=== PATIENT | female | born 1945 | race Caucasian/White ===

== ENCOUNTER 2021-07-21 18:12 | Inpatient (IN) | payer OTHER ==
--- OUTSIDE RECORDS SUMMARY | 2021-07-21 18:15 | XMS REPORT | Continuity of Care Document ---
:1945 Author Organization [facility] t Address [address] [place] [address] [address] [place] [address] Care Team Providers Name Role Phone Unavailable Unavailable Unavailable Problems This patient has no known problems. Allergies, Adverse Reactions, Alerts Allergy Allergy Status Severity Reaction(s) Onset Inactive Treating Comm ents Source Name Type Date Date Clinician NO KNOWN Drug Active [facility] y [facility] Medications This patient has no known medications. Procedures This patient has no known procedures. Encounters Start End Encounter Admission Attending Care Care Encounter Source Date/Time Date/Time Type Type Clinicians Facility Department ID 2020-11-03 2020-11-03 Outpatient R [facility] [id number] -20 [facility] 11:40:00 11:40:00 [id number] [facility] Results This patient has no known results.
[2021-07-21] MEDS ORDERED: ACETAMINOPHEN 325 MG TABLET ONE (20:12)
[2021-07-21] MEDS ORDERED: CEFTRIAXONE 1000 MG/VIAL ONE (20:12)
[2021-07-21] MEDS ORDERED: NA CHLORIDE 0.9% 1,000 ML ONE (20:13)
[2021-07-21] MEDS ORDERED: NA CHLORIDE 0.9% 0 ML ONE (20:13)
[2021-07-21 20:43] LABS: Urine Blood Negative (Negative); Urine Glucose Negative (Negative); Urine Protein 1+ (Negative); Urine Specific Gravity 1.025 (1.005-1.030)
[2021-07-21 20:47] LABS: Absolute Lymphocytes (CBC) 1.3 K/uL (0.7-4.9); Hematocrit 37.7 % (36.0-45.0); Lymphocytes % 10.6 % (15.3-44.8); MPV 9.9 fL (7.6-11.3)
[2021-07-21 21:03] LABS: Protime INR 1.03
--- NOTE | 2021-07-21 21:03 | ER ---
Nurse's Notes [facility] Name: Cathleen Coffey Age: 76 yrs Sex: Female : 1945 Arrival Date: 07/21/2021 Time: 18:14 Bed 19 Private MD: Diagnosis: Altered mental status, unspecified;Weakness;Fever, unspecified;Dementia in other diseases classified elsewhere without behavioral disturbance Presentation: 07/21 18:52 Chief complaint: Patient states: AMS, urinating on herself, not wanting to eat or jh5 drink, and complaining of back pain. Coronavirus screen: Vaccine status: Patient reports receiving the 2nd dose of the covid vaccine. Client denies travel out of the [place] in the last 14 days. Ebola Screen: Patient negative for fever greater than or equal to 101.5 degrees Fahrenheit, and additional compatible Ebola Virus Disease symptoms Patient denies exposure to infectious person. Patient denies travel to an Ebola-affected area in the 21 days before illness onset. Initial Sepsis Screen: Does the patient meet any 2 criteria? No. Patient's initial sepsis screen is negative. Does the patient have a suspected source of infection? Yes: Dysuria/Frequency/Urgency/UTI. Risk Assessment: Do you want to hurt yourself or someone else? Patient reports no desire to harm self or others. 18:52 Method Of Arrival: Ambulatory [facility] 18:52 Acuity: MAINE 2 [facility] Triage Assessment: 18:55 General: Appears in no apparent distress. slender, well groomed, well developed, well jh5 nourished, Behavior is calm, cooperative, appropriate for age. Pain: Complains of pain in back. Neuro: Level of Consciousness is awake, alert, obeys commands, confused, Oriented to person, place. Historical: - PMHx: 18:55 Alzheimer's disease; [facility] - Immunization history:: Adult Immunizations up to date. - Social history:: Smoking status: Patient denies any tobacco usage or history of. Screenin:51 Abuse screen: Denies threats or abuse. Denies injuries from another. Nutritional dora screening: No deficits noted. Tuberculosis screening: No symptoms or risk factors identified. Fall Risk Fall in past 12 months (25 points). IV access (20 points). Assessment: 19:10 General: Appears in no apparent distress. comfortable, Behavior is calm, cooperative. dora Pain: Complains of pain in "all over" per the daughter's report, she c/o pain to shoulders and legs. Neuro: Oriented to person, place. Cardiovascular: No deficits noted. Respiratory: No deficits noted. GI: No deficits noted. : Reports incontinence, "pull up" in place. EENT: No deficits noted. Derm: excoriation under left breast with Desitin on it. Musculoskeletal: Pt is a total assist from the wheelchair to the bed, so total assist. Vital Signs: 18:52 BP 159 / 60; Pulse 79; Resp 18; Temp 98.7; Pulse Ox 99% ; Weight 65.77 kg; Height 5 ft. 5 8 in. (172.72 cm); 19:51 BP 142 / 62; Pulse 72; Resp 18; Temp 100.1; Pulse Ox 99% on R/A; Pain 6/10; dora 21:00 BP 140 / 92; Pulse 60; Resp 18; Pulse Ox 99% on R/A; dora 23:40 BP 123 / 66; Pulse 59; Resp 16; Pulse Ox 97% on R/A; dora 18:52 Body Mass Index 22.05 (65.77 kg, 172.72 cm) [facility] ED Course: 18:14 Patient arrived in ED. am2 18:54 Triage completed. [facility] 18:55 Arm band placed on right wrist. [facility] 19:10 Marizol Gandhi, RN is Primary Nurse. dora 19:51 Patient has correct armband on for positive identification. Bed in low position. Side dora rails up X2. Adult w/ patient. quality assurance monitor final on. Pulse ox on. NIBP on. Warm blanket given. 19:51 No provider procedures requiring assistance completed. Inserted saline lock: 20 gauge dora in right antecubital area, using aseptic technique. 19:59 Jem Young MD is Attending Physician. solange 20:28 Basic Metabolic Panel Sent. dora 20:28 CBC with Automated Diff Sent. dora 20:28 Liver (Hepatic) Function Sent. dora 20:28 Procalcitonin Sent. dora 20:28 Lactate Sent. dora 20:28 Blood Culture Adult (2) Sent. dora 20:28 COVID-19/FLU A+B/RSV (Document "Date of Onset" if Symptomatic) Sent. dora 20:29 Urine Culture Sent. dora 20:29 Basic Metabolic Panel Sent. dora 20:29 CBC with Diff Sent. dora 20:29 Magnesium Sent. dora 20:29 NT PRO-BNP Sent. dora 20:29 PT-INR Sent. dora 20:30 Troponin HS Sent. dora 20:30 LFT's Sent. dora 20:49 XRAY Chest (1 view) In Process Unspecified. EDMS 21:01 Steve Medel MD is Hospitalizing Provider. [facility] 21:05 EKG done, by ED staff, reviewed by Jem Young MD. tw5 21:42 CT Head Brain wo Cont In Process Unspecified. EDMS 23:48 I tried to call registration, as the pt is to go to Room 206. After I call report, I dora will again, try. 23:50 Flushed right antecubital Patient transferred, IV remains in place. dora 23:53 Report called and registration called. Registration is "working on it". dora Administered Medications: 20:28 Drug: Rocephin (cefTRIAXone) 1 grams Route: IV; Rate: per protocol; Site: right dora antecubital; 20:28 Drug: NS 0.9% 1000 ml Route: IV; Rate: 1 bolus; Site: right antecubital; dora 20:28 Drug: Tylenol 650 mg Route: PO; dora Outcome: 21:03 Decision to Hospitalize by Provider. solange 23:49 Admitted to Med/surg Report called to Nurse for 206 dora 23:49 Condition: stable /14 00:11 Patient left the ED. tw5 Signatures: Dispatcher [employer] Jem Coates MD MD cha Moreno, Amanda am2 Wood, Tiffany tw5 Barbara Loredo, RN RN 5 Marizol Gandhi RN RN dora
--- NOTE | 2021-07-21 21:03 | EDPHYS ---
Physician Documentation [facility] Name: Cathleen Coffey Age: 76 yrs Sex: Female : 1945 Arrival Date: 07/21/2021 Time: 18:14 Bed 19 Private MD: ED Physician Jem Young HPI: 07/21 20:44 This 76 yrs old Female presents to ER via Ambulatory with complaints of solange Altered Mental Status, Decreased Appetite. 20:44 The patient presents with confusion, decreased mental status. Onset: The solange symptoms/episode began/occurred today. Possible causes: CVA or TIA, low blood sugar, sepsis. Associated signs and symptoms: Pertinent positives: confusion. Current symptoms: In the emergency department the patient's symptoms have improved, mildly. Patient's baseline: Neuro: alert and fully oriented. The patient has experienced similar episodes in the past, a few times. Historical: - PMHx: 18:55 Alzheimer's disease; jh5 - Immunization history:: Adult Immunizations up to date. - Social history:: Smoking status: Patient denies any tobacco usage or history of. ROS: 20:49 Constitutional: Negative for fever, chills, and weight loss, Eyes: Negative for injury, solange pain, redness, and discharge, ENT: Negative for injury, pain, and discharge, Neck: Negative for injury, pain, and swelling, Cardiovascular: Negative for chest pain, palpitations, and edema, Respiratory: Negative for shortness of breath, cough, wheezing, and pleuritic chest pain, Abdomen/GI: Negative for abdominal pain, nausea, vomiting, diarrhea, and constipation, Back: Negative for injury and pain, : Negative for injury, bleeding, discharge, and swelling, MS/Extremity: Negative for injury and deformity, Skin: Negative for injury, rash, and discoloration, Psych: Negative for depression, anxiety, suicide ideation, homicidal ideation, and hallucinations, Allergy/Immunology: Negative for hives, rash, and allergies, Endocrine: Negative for neck swelling, polydipsia, polyuria, polyphagia, and marked weight changes, Hematologic/Lymphatic: Negative for swollen nodes, abnormal bleeding, and unusual bruising. 20:49 Neuro: Positive for altered mental status, weakness. 20:49 Neuro: Positive for Exam: 20:49 Head/Face: Normocephalic, atraumatic. Eyes: Pupils equal round and reactive to light, solange extra-ocular motions intact. Lids and lashes normal. Conjunctiva and sclera are non-icteric and not injected. Cornea within normal limits. Periorbital areas with no swelling, redness, or edema. ENT: Nares patent. No nasal discharge, no septal abnormalities noted. Tympanic membranes are normal and external auditory canals are clear. Oropharynx with no redness, swelling, or masses, exudates, or evidence of obstruction, uvula midline. Mucous membranes moist. Neck: Trachea midline, no thyromegaly or masses palpated, and no cervical lymphadenopathy. Supple, full range of motion without nuchal rigidity, or vertebral point tenderness. No Meningismus. Chest/axilla: Normal chest wall appearance and motion. Nontender with no deformity. No lesions are appreciated. Cardiovascular: Regular rate and rhythm with a normal S1 and S2. No gallops, murmurs, or rubs. Normal PMI, no JVD. No pulse deficits. Respiratory: Lungs have equal breath sounds bilaterally, clear to auscultation and percussion. No rales, rhonchi or wheezes noted. No increased work of breathing, no retractions or nasal flaring. Abdomen/GI: Soft, non-tender, with normal bowel sounds. No distension or tympany. No guarding or rebound. No evidence of tenderness throughout. Back: No spinal tenderness. No costovertebral tenderness. Full range of motion. Female : Normal external genitalia. Skin: Warm, dry with normal turgor. Normal color with no rashes, no lesions, and no evidence of cellulitis. MS/ Extremity: Pulses equal, no cyanosis. Neurovascular intact. Full, normal range of motion. Neuro: Awake and alert, GCS 15, oriented to person, place, time, and situation. Cranial nerves II-XII grossly intact. Motor strength 5/5 in all extremities. Sensory grossly intact. Cerebellar exam normal. Normal gait. Psych: Awake, alert, with orientation to person, place and time. Behavior, mood, and affect are within normal limits. 20:49 Constitutional: The patient appears febrile. 20:49 Neck: ROM/movement: no acute changes, limited range of motion, is not appreciated, Meningeal signs: are not present, nuchal rigidity, is not appreciated. 21:14 ECG was reviewed by the Attending Physician. [facility] Vital Signs: 18:52 BP 159 / 60; Pulse 79; Resp 18; Temp 98.7; Pulse Ox 99% ; Weight 65.77 kg; Height 5 ft. jh5 8 in. (172.72 cm); 19:51 BP 142 / 62; Pulse 72; Resp 18; Temp 100.1; Pulse Ox 99% on R/A; Pain 6/10; dora 21:00 BP 140 / 92; Pulse 60; Resp 18; Pulse Ox 99% on R/A; dora 23:40 BP 123 / 66; Pulse 59; Resp 16; Pulse Ox 97% on R/A; dora 18:52 Body Mass Index 22.05 (65.77 kg, 172.72 cm) jh5 MDM: 19:59 Patient medically screened. [facility] 21:00 Differential diagnosis: viral Infection, bacterial infection, URI, bronchitis, solange pneumonia UTI. Differential Diagnosis: CVA, electrolyte abnormality, hypoglycemia, intracranial bleed, pneumonia, seizure, volume depletion. Data reviewed: vital signs, nurses notes, lab test result(s), EKG, radiologic studies, CT scan, plain films. Data interpreted: ekg monitor tech: rate is 72 beats/min, rhythm is regular, Pulse oximetry: on room air is 99 %. Test interpretation: by ED physician or midlevel provider: ECG, plain radiologic studies. Counseling: I had a detailed discussion with the patient and/or guardian regarding: the historical points, exam findings, and any diagnostic results supporting the discharge/admit diagnosis, lab results, radiology results, the need for further work-up and treatment in the hospital. 07/21 20:06 Order name: Basic Metabolic Panel [facility] 07/21 20:06 Order name: CBC with Diff [facility] 07/21 20:06 Order name: LFT's [facility] 07/21 20:06 Order name: Magnesium; Complete Time: 00:08 [facility] 07/21 20:06 Order name: NT PRO-BNP; Complete Time: 00:08 [facility] 07/21 20:06 Order name: PT-INR; Complete Time: 21:17 [facility] 07/21 20:06 Order name: Troponin HS; Complete Time: 00:08 [facility] 07/21 20:06 Order name: Urine Culture [facility] 07/21 20:06 Order name: COVID-19/FLU A+B/RSV (Document "Date of Onset" if Symptomatic); Complete [facility] Time: 00:08 07/21 20:06 Order name: Lactate [facility] 07/21 20:06 Order name: Blood Culture Adult (2) [facility] 07/21 20:06 Order name: Procalcitonin; Complete Time: 00:08 [facility] 07/21 20:07 Order name: Basic Metabolic Panel; Complete Time: 00:08 [facility] 07/21 20:07 Order name: CBC with Automated Diff; Complete Time: 21:17 [facility] 07/21 20:06 Order name: XRAY Chest (1 view); Complete Time: 00:08 [facility] 07/21 20:06 Order name: EKG; Complete Time: 20:08 [facility] 07/21 20:06 Order name: Cardiac monitoring; Complete Time: 20:29 [facility] 07/21 20:06 Order name: EKG - Nurse/Tech; Complete Time: 21:06 [facility] 07/21 20:06 Order name: IV Saline Lock; Complete Time: 20:29 [facility] 07/21 20:06 Order name: Labs collected and sent; Complete Time: 20: [facility] 07/21 20:06 Order name: O2 Per Protocol; Complete Time: 20:29 [facility] 07/21 20:06 Order name: O2 Sat Monitoring; Complete Time: 20:29 [facility] 07/21 20:06 Order name: Urine Dipstick-Ancillary (obtain specimen); Complete Time: 20:29 [facility] 07/21 20:07 Order name: Liver (Hepatic) Function; Complete Time: 00:08 [facility] 07/21 20:42 Order name: Urine Dipstick-Ancillary; Complete Time: 20:44 [facility] 07/21 21:17 Order name: CT Head Brain wo Cont; Complete Time: 00:08 [facility] 07/22 00:10 Order name: CT Stone Protocol [facility] EC:14 Rate is 64 beats/min. Rhythm is regular. QRS [place] is Normal. FL interval is normal. QRS solange interval is normal. QT interval is normal. No Q waves. T waves are Normal. No ST changes noted. Clinical impression: NSR w/ Non-specific ST/T Changes and No evidence of ischemia. Interpreted by me. Reviewed by me. Administered Medications: 20:28 Drug: Rocephin (cefTRIAXone) 1 grams Route: IV; Rate: per protocol; Site: right dora antecubital; 20:28 Drug: NS 0.9% 1000 ml Route: IV; Rate: 1 bolus; Site: right antecubital; dora 20:28 Drug: Tylenol 650 mg Route: PO; dora Disposition Summary: 07/21/21 21:03 Hospitalization Ordered Hospitalization Status: Observation solange Provider: Steve Medel cha Location: Telemetry/MedSurg (observation) solange Condition: Fair solange Problem: new solange Symptoms: have improved solange Bed/Room Type: Standard [facility] Room Assignment: 206(07/21/21 22:54) mw Diagnosis - Altered mental status, unspecified solange - Weakness solange - Fever, unspecified solange - Dementia in other diseases classified elsewhere without behavioral disturbance solange Forms: - Medication Reconciliation Form solange - SBAR form solange Signatures: Dispatcher [employer] EDShara Jimenez RN RN Jem Hsu MD MD cha Rees, Jessica, RN RN jh5 Marizol Gandhi RN RN bo Corrections: (The following items were deleted from the chart) 22:54 21:03 solange [place]
--- NOTE | 2021-07-21 21:18 | RAD REPORT ---
EXAM DESCRIPTION: RAD - Chest Single View - 07/21/2021 8:49 pm CLINICAL HISTORY: COUGH COMPARISON: No comparisons FINDINGS: Lines: None. Lungs: No evidence of edema or pneumonia. Pleural: No significant pleural effusions or pneumothorax. Cardiac: The heart size is within normal limits. Bones: No acute fractures. Left shoulder arthroplasty. Advanced right shoulder degenerative changes. Other: IMPRESSION: No acute cardiopulmonary disease.
[2021-07-21 21:34] LABS: SARS-COV-2 RT PCR NEGATIVE (NEGATIVE)
[2021-07-21 21:44] LABS: Albumin 3.7 g/dL (3.4-5.0); Bilirubin Direct 0.3 mg/dL (0-0.2); Magnesium 2.3 mg/dL (1.8-2.4); Potassium 3.3 mmol/L (3.5-5.1); Protein, Total 8.4 g/dL (6.4-8.2); Troponin High Sensitivity 6.5 pg/mL (<58.9)
--- NOTE | 2021-07-21 21:54 | RAD REPORT ---
EXAM DESCRIPTION: CT - Head Brain Wo Cont - 07/21/2021 9:43 pm CLINICAL HISTORY: Dizziness;Mental status change COMPARISON: Head Brain Wo Cont dated 03/04/2018 TECHNIQUE: All CT scans are performed using dose optimization technique as appropriate and may inclu de automated exposure control or mA/KV adjustment according to patient size. FINDINGS: No intracranial hemorrhage, hydrocephalus or extra-axial fluid collection.No areas of brai n edema or evidence of midline shift. Moderate chronic small vessel ischemic changes which has progre ssed significantly since 03/04/2018. Cerebral atrophy. The paranasal sinuses and mastoids are clear. The calvarium is intact. IMPRESSION: No acute intracranial abnormality.
[2021-07-22] MEDS ORDERED: ONDANSETRON 4 MG/2 ML VIAL IV PRN (00:35)
[2021-07-22] MEDS ORDERED: ACETAMINOPHEN 500 MG TAB PO PRN (00:35)
[2021-07-22] MEDS: NA CHLORIDE 0.9% 1,000 ML IV SCH ×3 (00:50→20:41)
--- NOTE | 2021-07-22 02:49 | P.HP ---
Certification for Inpatient Patient admitted to: Inpatient With expected LOS: <2 Midnights Patient will require the following post-hospital care: None Practitioner: I am a practitioner with admitting privileges, knowledge of patient current condition, hospital course, and medical plan of care. Services: Services provided to patient in accordance with Admission requirements found in Title 42 Section 412.3 of the Code of Federal Regulations Patient History Date of Service: 07/22/21 Primary Care Provider: Cody Reason for admission: weakness History of Present Illness: Ms. Coffey is a 76 yo F with Alzheimer's disease and HTN who presents with one day of increased weakness. At home, her son-in-law was unable to get her up or get her to respond to him. When the daughter arrived, she says Ms. Coffey was slouched down in her chair. She would not stand and said she could not walk. She had an episode of incontinence. Daughter reports she has also had low grade fever and poor appetite. WBC 12.6 K 3.3 GFR 75 Glu 132 Allergies No Known Allergies Allergy (Unverified 07/22/21 00:41) Home Medications: Donepezil HCl 10 mg PO BEDTIME 07/22/21 Iron 27 mg PO DAILY 07/22/21 Losartan Potassium 100 mg PO DAILY 07/22/21 Memantine HCl 10 mg PO BID 07/22/21 One A Day Womens 50+ 1 tab PO DAILY 07/22/21 Pantoprazole [Protonix Tab] 40 mg PO DAILY 07/22/21 Sertraline HCl 75 mg PO BEDTIME 07/22/21 - Past Medical/Surgical History Has patient received pneumonia vaccine in the past: Yes Diabetic: No -: Alzheimers -: HTN -: hip surgery -: bilateral knee surgery -: rotator cuff surgery -: hysterectomy -: appendectomy - Social History Smoking Status: Never smoker Alcohol use: No CD- Drugs: No Caffeine use: Yes Place of Residence: Home Review of Systems 10-point ROS is otherwise unremarkable General: Fever, Weakness, Malaise Eyes: Unremarkable ENT: Unremarkable Respiratory: Unremarkable Cardiovascular: Unremarkable Gastrointestinal: Unremarkable Genitourinary: Incontinence Musculoskeletal: Back Pain Integumentary: Rash Neurological: Weakness, Confusion, As per HPI Lymphatics: Unremarkable Physical Examination - Vital Signs Temperature: 96.5 F Blood Pressure: 133/64 Pulse: 57 Respirations: 18 Pulse Ox (%): 99 - Physical Exam General: Alert, In no apparent distress HEENT: Atraumatic, PERRLA, Mucous membr. moist/pink, EOMI, Sclerae nonicteric Neck: Supple, 2+ carotid pulse no bruit, No LAD, Without JVD or thyroid abnormality Respiratory: Clear to auscultation bilaterally, Normal air movement Cardiovascular: Regular rate/rhythm, Normal S1 S2 Gastrointestinal: Normal bowel sounds, No tenderness Musculoskeletal: No tenderness Integumentary: Rash(es) (dermatitis under breast) Neurological: Normal speech, Normal strength at 5/5 x4 extr, Normal tone, Dementia Lymphatics: No axilla or inguinal lymphadenopathy - Studies Laboratory Data (last 24 hrs) 07/21/21 20:15: PT 11.9, INR 1.03 07/21/21 20:15: WBC 12.60 H, Hgb 12.5, Hct 37.7, Plt Count 212 07/21/21 20:15: Sodium 138, Potassium 3.3 L, BUN 15, Creatinine 0.75, Glucose 132 H, Magnesium 2.3, Total Bilirubin 1.0, AST 18, ALT 19, Alkaline Phosphatase 109 Assessment and Plan - Problems (Diagnosis) (1) Weakness Current Visit: Yes Status: Acute (2) Anorexia Current Visit: Yes Status: Acute (3) AMS (altered mental status) Current Visit: Yes Status: Acute Qualifiers: Altered mental status type: unspecified Qualified Code(s): R41.82 - Altered mental status, unspecified (4) Alzheimer disease Current Visit: Yes Status: Chronic (5) HTN (hypertension) Current Visit: Yes Status: Chronic Qualifiers: Hypertension type: primary hypertension Qualified Code(s): I10 - Essential (primary) hypertension - Plan repeat urine microscopy continue IV fluids and IV ceftriaxone dietitian consulted PT consulted reconcile and continue home medications DVT ppx Discharge Plan: Home Plan to discharge in: 48 Hours - Advance Directives Does patient have a Living Will: No Does patient have a Durable POA for Healthcare: Yes - Code Status/Comfort Care Code Status Assessed: Yes (full code ) Critical Care: No Time Spent Managing Pts Care (In Minutes): 70
[2021-07-22 05:40] LABS: Absolute Lymphocytes (CBC) 2.9 K/uL (0.7-4.9); Hematocrit 32.4 % (36.0-45.0); Lymphocytes % 31.9 % (15.3-44.8); MPV 8.3 fL (7.6-11.3); RBC Red Blood Cell Count 3.59 M/uL (3.86-4.86)
[2021-07-22 07:12] LABS: ALT/SGPT 14 U/L (12-78); AST/SGOT 12 U/L (15-37); Albumin 2.8 g/dL (3.4-5.0); Alkaline Phosphatase 83 U/L (45-117); BUN Blood Urea Nitrogen 12 mg/dL (7-18); Bicarbonate 26 mmol/L (21-32); Bilirubin Total 0.9 mg/dL (0.2-1.0); Glucose Level 111 mg/dL (74-106); Magnesium 2.5 mg/dL (1.8-2.4); Phosphorus 2.7 mg/dL (2.5-4.9); Potassium 3.2 mmol/L (3.5-5.1); Protein, Total 6.7 g/dL (6.4-8.2); Sodium Level 142 mmol/L (136-145)
[2021-07-22 07:23] LABS: Urine Appearance CLEAR (Clear); Urine Bilirubin NEGATIVE (Negative); Urine Blood TRACE (Negative); Urine Color YELLOW (Yellow); Urine Glucose NEGATIVE (Negative); Urine Protein NEGATIVE (Negative); Urine pH 6.5 (5.0-7.0)
[2021-07-22] MEDS: INSULIN -REGULAR HUMAN 50 UNIT/0.5 ML ML SQ SCH ×4 (07:30→21:00)
[2021-07-22 07:57] LABS: Urine Microscopic Reflex ORDER UMIC
[2021-07-22] MEDS ORDERED: INFLUENZA VACCINE (for 6+ mo) 0.5 ML DOSE IMVAC ONE (08:00)
[2021-07-22 08:02] LABS: Urine Bacteria <20 /HPF (<20); Urine RBC <5 /HPF (NONE SEEN)
[2021-07-22] MEDS: ENOXAPARIN 40 MG/0.4 ML SQ SCH ×2 (08:35→08:37)
[2021-07-22] MEDS ORDERED: POTASSIUM CL SA 10 MEQ TAB PO ONE (09:00)
--- NOTE | 2021-07-22 13:33 | RAD REPORT ---
EXAM DESCRIPTION: CT - Stone Protocol - 07/22/2021 12:53 am CLINICAL HISTORY: ABD PAIN. COMPARISON: None. TECHNIQUE: Serial axial CT images were obtained from above the diaphragm through the pubic symphysis without administration of intravenous or oral contrast. All CT scans are performed using dose optimization techniques as appropriate, including automated exp osure control and/or standardized protocols, where dose is adjusted for indication for exam and body habitus. FINDINGS: Thoracic: No significant abnormality. Hepatobiliary: Multiple tiny calcified granulomata in the liver. No obvious concerning hepatic lesion identified in the absence of intravenous contrast. The gallbladder is unremarkable. No biliary ducta l dilatation. Pancreas: Unremarkable. Spleen: Multiple tiny calcified granulomata in the spleen. Gastrointestinal: Moderate amount of fecal material in the distal sigmoid colon and the rectum. Moder ate left colonic diverticulosis. No evidence of bowel obstruction or perienteric inflammation. The ap pendix is not definitely visualized, but there are no pericecal inflammatory changes. Adrenals: No abnormality identified in either adrenal gland. Renal: Tiny hyperdense cyst in the superior left kidney. No obvious parenchymal abnormality in either kidney in the absence of intravenous contrast. No hydronephrosis or urolithiasis. Bladder/Reproductive: Unremarkable appearance of the urinary bladder by CT technique. Vascular/Lymphatics: No lymphadenopathy identified by CT size criteria. Trace calcific atherosclerosi s. Abdominal aorta is normal in caliber. Musculoskeletal: No concerning osseous lesion identified. Osteopenia. Left hip arthroplasty. Moderate to severe right hip osteoarthrosis. Fluid / peritoneum: No significant free fluid. No free intraperitoneal air identified. IMPRESSION: 1. No acute abnormality identified in the abdomen or pelvis by CT. 2. Moderate amount of fecal material in the distal sigmoid colon and the rectum. Moderate left colo terri diverticulosis without evidence of acute diverticulitis. Electronically signed by: Jennifer Ruff MD 07/22/2021 12:46 AM PRECISION OPTICS TECHNICIAN Due to temporary technical issues with the PACS/Fluency reporting system, reports are being signed by the in house radiologists without review as a courtesy to insure prompt reporting. The interpreting radiologist is fully responsible for the content of the report.
--- NOTE | 2021-07-22 14:22 | P.PN ---
Date of Service: 07/22/21 Patient seen and examined. Daughter reports patient has been having syncopal episodes especially during bowel movement. She also reported patient has been complaining of pain in the lower back and hip area which is affecting her ability to transfer or walk. CT abdomen pelvis reviewed. Moderate to severe right hip osteoarthrosis which may be causing her hip pain. UA with mild evidence of UTI. Plan: Continue antibiotics. Follow urine culture Pain management Seen by PT and skilled rehab recommended. Orthostatic vitals negative today.
[2021-07-22] MEDS: HYDROCODONE/APAP 5/325 MG TAB PO PRN (15:29)
[2021-07-22 15:34] LABS: Potassium 3.2 mmol/L (3.5-5.1)
[2021-07-22] MEDS ORDERED: CEFTRIAXONE 1000 MG/VIAL ONE (20:02)
[2021-07-22] MEDS: CEFTRIAXONE 1,000 MG in NA CHLORIDE 0.9% 50 ML IVPB SCH (20:40)
[2021-07-22] MEDS: ENSURE ENLIVE 237 ML CAN PO SCH (20:41)
[2021-07-22] MEDS: SERTRALINE HCL 50 MG TAB PO SCH (21:43)
[2021-07-22] MEDS: MEMANTINE HCL 10 MG TABLET PO SCH (21:43)
[2021-07-22] MEDS: DONEPEZIL HCL 5 MG TAB PO SCH (21:44)
[2021-07-23 00:10] VITALS: BMI 22.6
[2021-07-23] MEDS: HYDROCODONE/APAP 5/325 MG TAB PO PRN ×4 (00:18→18:32)
[2021-07-23 05:50] LABS: Hematocrit 30.7 % (36.0-45.0); Lymphocytes % 42.9 % (15.3-44.8); MPV 8.9 fL (7.6-11.3); RBC Red Blood Cell Count 3.36 M/uL (3.86-4.86)
[2021-07-23] MEDS: NA CHLORIDE 0.9% 1,000 ML IV SCH ×2 (06:37→15:50)
[2021-07-23] MEDS: INSULIN -REGULAR HUMAN 50 UNIT/0.5 ML ML SQ SCH ×2 (07:30→11:30)
[2021-07-23] MEDS ORDERED: POTASSIUM 25 MEQ EFFERV TAB PO ONE (09:00)
[2021-07-23] MEDS: ENSURE ENLIVE 237 ML CAN PO SCH ×2 (09:00→22:42)
[2021-07-23] MEDS: CEFTRIAXONE 1,000 MG in NA CHLORIDE 0.9% 50 ML IVPB SCH (09:10)
[2021-07-23] MEDS: FERROUS SULFATE 325 MG TAB PO SCH (09:11)
[2021-07-23] MEDS: LOSARTAN POTASSIUM 50 MG TABLET PO SCH (09:11)
[2021-07-23] MEDS: MEMANTINE HCL 10 MG TABLET PO SCH ×2 (09:11→21:42)
[2021-07-23] MEDS: PANTOPRAZOLE 40MG TABLET PO SCH (09:11)
[2021-07-23] MEDS: MULTIVIT W/ MINERAL TAB PO SCH (09:11)
--- NOTE | 2021-07-23 13:21 | P.PN ---
Subjective Date of Service: 07/23/21 Primary Care Provider: Cody Chief Complaint: weakness Patient reports pain in the right hip. She is awake and interactive. No fever. She is tolerating diet. Physical Examination - Vital Signs Temperature: 97.8 F Blood Pressure: 149/79 Pulse: 59 Respirations: 16 Pulse Ox (%): 95 - Physical Exam General: In no apparent distress, Other (Awake) HEENT: PERRLA, Mucous membr. moist/pink, EOMI Neck: Supple, JVD not distended Respiratory: Clear to auscultation bilaterally, Normal air movement Cardiovascular: No edema, Regular rate/rhythm, Normal S1 S2 Gastrointestinal: Normal bowel sounds, Soft and benign, Non-distended, No tenderness Musculoskeletal: No swelling, Tenderness (Right lateral hip) Integumentary: No rashes, No erythema, No cyanosis Neurological: Normal strength at 5/5 x4 extr, Other (Moves all extremities.) Assessment And Plan - Current Problems (Diagnosis) (1) Osteoarthrosis, hip Current Visit: Yes Status: Acute (2) AMS (altered mental status) Current Visit: Yes Status: Acute Qualifiers: Altered mental status type: unspecified Qualified Code(s): R41.82 - Altered mental status, unspecified (3) Alzheimer disease Current Visit: Yes Status: Chronic (4) HTN (hypertension) Current Visit: Yes Status: Chronic Qualifiers: Hypertension type: primary hypertension Qualified Code(s): I10 - Essential (primary) hypertension (5) Impaired mobility Current Visit: Yes Status: Acute (6) UTI (urinary tract infection) Current Visit: Yes Status: Acute - Plan Daughter describes what appears to be intermittent vasovagal syncope which WITH voiding or BMs or prolonged standing. Also has AMS secondary to UTI. Both blood culture and urine culture growing known beta-hemolytic strep. Continue IV Rocephin. Repeat blood culture. Orthopedic consult for right hip osteoarthrosis. Status post left hip replacement for osteoarthrosis several years ago. Continue PT. Disposition to skilled rehab.
[2021-07-23] MEDS ORDERED: INFLUENZA VACCINE (for 6+ mo) 0.5 ML DOSE IMVAC ONE (15:00)
[2021-07-23] MEDS ORDERED: HALOPERIDOL LACT 5 MG/ML INJ IV ONE (15:02)
[2021-07-23] MEDS: DONEPEZIL HCL 5 MG TAB PO SCH (21:41)
[2021-07-23] MEDS: SERTRALINE HCL 50 MG TAB PO SCH (21:41)
[2021-07-24] MEDS: NA CHLORIDE 0.9% 1,000 ML IV SCH ×4 (03:07→22:35)
[2021-07-24 06:25] LABS: Absolute Lymphocytes (CBC) 2.7 K/uL (0.7-4.9); Hematocrit 31.4 % (36.0-45.0); Lymphocytes % 45.2 % (15.3-44.8); MPV 8.1 fL (7.6-11.3)
[2021-07-24 06:46] LABS: BUN Blood Urea Nitrogen 5 mg/dL (7-18); Bicarbonate 30 mmol/L (21-32); Glucose Level 91 mg/dL (74-106); Potassium 3.9 mmol/L (3.5-5.1); Sodium Level 142 mmol/L (136-145)
[2021-07-24] MEDS ORDERED: POTASSIUM CL SA 10 MEQ TAB PO ONE (09:00)
[2021-07-24] MEDS: CEFTRIAXONE 1,000 MG in NA CHLORIDE 0.9% 50 ML IVPB SCH (10:40)
[2021-07-24] MEDS: ENOXAPARIN 40 MG/0.4 ML SQ SCH (10:40)
[2021-07-24] MEDS: MEMANTINE HCL 10 MG TABLET PO SCH ×2 (10:41→21:00)
[2021-07-24] MEDS: PANTOPRAZOLE 40MG TABLET PO SCH (10:41)
[2021-07-24] MEDS: MULTIVIT W/ MINERAL TAB PO SCH (10:41)
[2021-07-24] MEDS: FERROUS SULFATE 325 MG TAB PO SCH (10:41)
[2021-07-24] MEDS: LOSARTAN POTASSIUM 50 MG TABLET PO SCH (10:41)
[2021-07-24] MEDS: ENSURE ENLIVE 237 ML CAN PO SCH ×2 (10:42→21:00)
[2021-07-24] MEDS: HYDROCODONE/APAP 5/325 MG TAB PO PRN ×2 (10:57→16:48)
--- NOTE | 2021-07-24 11:29 | P.PN ---
Subjective Date of Service: 07/24/21 Primary Care Provider: Cody Chief Complaint: weakness Patient has no complains today She is awake and interactive. She is tolerating diet. Physical Examination - Vital Signs Temperature: 99.0 F Blood Pressure: 152/77 Pulse: 66 Respirations: 16 Pulse Ox (%): 95 - Physical Exam General: Alert, In no apparent distress, Oriented x3 HEENT: Mucous membr. moist/pink Neck: JVD not distended Respiratory: Clear to auscultation bilaterally, Normal air movement Cardiovascular: No edema, Regular rate/rhythm, Normal S1 S2 Gastrointestinal: Soft and benign, Non-distended, No tenderness Musculoskeletal: No swelling Integumentary: No rashes, No erythema, No cyanosis Neurological: Normal strength at 5/5 x4 extr - Studies Microbiology Data (last 24 hrs): 07/21/21 20:15 Clean Catch Urine [place] Count - Final >100,000 CFU/ML. 07/21/21 20:15 Clean Catch Urine - Final Enterococcus Faecalis 07/21/21 20:15 Blood - Blood Gram Stain - Final Assessment And Plan - Current Problems (Diagnosis) (1) Osteoarthrosis, hip Current Visit: Yes Status: Acute (2) AMS (altered mental status) Current Visit: Yes Status: Acute Qualifiers: Altered mental status type: unspecified Qualified Code(s): R41.82 - Altered mental status, unspecified (3) Alzheimer disease Current Visit: Yes Status: Chronic (4) HTN (hypertension) Current Visit: Yes Status: Chronic Qualifiers: Hypertension type: primary hypertension Qualified Code(s): I10 - Essential (primary) hypertension (5) Impaired mobility Current Visit: Yes Status: Acute (6) UTI (urinary tract infection) Current Visit: Yes Status: Acute - Plan AMS resolved Urine culture: Enterococcus sensitive to penicillin. Continue IV Rocephin. Repeat blood culture is pending. Discussed her right hip osteoarthrosis with orthopedic surgeon Dr. Frye. Dr. Frye an elective procedure and further evaluation as an outpatient. Recommended pain management and rehab Status post left hip replacement for osteoarthrosis several years ago. Continue PT. Disposition to skilled rehab.
[2021-07-24] MEDS: DONEPEZIL HCL 5 MG TAB PO SCH (21:00)
[2021-07-24] MEDS: SERTRALINE HCL 50 MG TAB PO SCH (21:00)
[2021-07-25] MEDS: HYDROCODONE/APAP 5/325 MG TAB PO PRN ×2 (00:45→21:23)
[2021-07-25] MEDS: NA CHLORIDE 0.9% 1,000 ML IV SCH ×4 (05:17→18:11)
[2021-07-25 05:59] LABS: BUN Blood Urea Nitrogen 9 mg/dL (7-18); Bicarbonate 27 mmol/L (21-32); Glucose Level 89 mg/dL (74-106); Potassium 3.4 mmol/L (3.5-5.1); Sodium Level 141 mmol/L (136-145)
[2021-07-25] MEDS: ENSURE ENLIVE 237 ML CAN PO SCH ×2 (09:00→21:00)
[2021-07-25] MEDS ORDERED: POTASSIUM 25 MEQ EFFERV TAB PO ONE (09:00)
[2021-07-25 09:51] VITALS: O2SAT 98
[2021-07-25] MEDS: CEFTRIAXONE 1,000 MG in NA CHLORIDE 0.9% 50 ML IVPB SCH (09:58)
[2021-07-25] MEDS: ENOXAPARIN 40 MG/0.4 ML SQ SCH (09:58)
[2021-07-25] MEDS: MULTIVIT W/ MINERAL TAB PO SCH (09:59)
[2021-07-25] MEDS: MEMANTINE HCL 10 MG TABLET PO SCH ×2 (09:59→21:07)
[2021-07-25] MEDS: FERROUS SULFATE 325 MG TAB PO SCH (09:59)
[2021-07-25] MEDS: PANTOPRAZOLE 40MG TABLET PO SCH (09:59)
[2021-07-25] MEDS: LOSARTAN POTASSIUM 50 MG TABLET PO SCH (09:59)
--- NOTE | 2021-07-25 14:12 | P.PN ---
Subjective Date of Service: 07/25/21 Primary Care Provider: Cody Chief Complaint: weakness Patient complains of pain with movement She is awake and interactive. She is tolerating diet. Physical Examination - Vital Signs Temperature: 99.6 F Blood Pressure: 156/70 Pulse: 67 Respirations: 18 Pulse Ox (%): 99 - Physical Exam General: Alert, In no apparent distress HEENT: Mucous membr. moist/pink Neck: JVD not distended Respiratory: Clear to auscultation bilaterally, Normal air movement Cardiovascular: No edema, Regular rate/rhythm, Normal S1 S2 Gastrointestinal: Soft and benign, Non-distended Musculoskeletal: No swelling Integumentary: No rashes Neurological: Normal strength at 5/5 x4 extr - Studies Microbiology Data (last 24 hrs): 07/21/21 20:15 Blood - Blood Gram Stain - Final 07/21/21 20:15 Clean Catch Urine [place] Count - Final >100,000 CFU/ML. 07/21/21 20:15 Clean Catch Urine - Final Enterococcus Faecalis Assessment And Plan - Current Problems (Diagnosis) (1) Osteoarthrosis, hip Current Visit: Yes Status: Acute (2) AMS (altered mental status) Current Visit: Yes Status: Acute Qualifiers: Altered mental status type: unspecified Qualified Code(s): R41.82 - Altered mental status, unspecified (3) Alzheimer disease Current Visit: Yes Status: Chronic (4) HTN (hypertension) Current Visit: Yes Status: Chronic Qualifiers: Hypertension type: primary hypertension Qualified Code(s): I10 - Essential (primary) hypertension (5) Impaired mobility Current Visit: Yes Status: Acute (6) UTI (urinary tract infection) Current Visit: Yes Status: Acute - Plan AMS resolved Urine culture: Enterococcus sensitive to penicillin. Continue IV Rocephin. Patient to complete 5 days of treatment for UTI. Blood culture also grew Enterococcus. ID consult to assist with duration of antibiotics. Repeat blood culture shows no growth. Discussed her right hip osteoarthrosis with orthopedic surgeon Dr. Frye. Dr. Frye an elective procedure and further evaluation as an outpatient. He recommended pain management and rehab at this time. Status post left hip replacement for osteoarthrosis several years ago. Continue PT. Disposition to skilled rehab.
--- NOTE | 2021-07-25 14:30 | CON ---
Reason For Consultation: Right hip pain. History Of Present Illness: Ms. Coffey is a 76-year-old female with history of Alzheimer's and hyper tension, who was admitted to the hospital for weakness and UTI. While in the hospital, she reported some right hip pain. She reports history of left total hip arthroplasty. She reports pain in the ri ght hip over the anterolateral and posterior aspect of the right hip. She reports the pain worsens w ith prolonged ambulation. Review of Systems: As above, otherwise negative. Past Medical History: Includes Alzheimer's, hypertension. Past Surgical History: Includes left hip replacement, knee surgery, rotator cuff surgery, hysterecto my, appendectomy. Social History: She denies tobacco or alcohol use. Lives at home. Medications: Donepezil, iron, losartan, memantine, Protonix, and Zoloft. Allergies: NO KNOWN DRUG ALLERGIES. Review of Systems: As above, otherwise negative. Physical Examination: General: No apparent distress. HEENT: Normocephalic, atraumatic. Neck: Supple. Cardiovascular: Brisk cap refill to all digits. Chest: Nonlabored breathing. Abdomen: Nondistended. Psychiatric: Responds to exam of the right lower extremity. Extremities: No significant pain with hip flexion nor hip internal and external rotation. Some post erior hip pain with straight leg raise. No tenderness over her knee. No swelling over the knee. Ne urovascularly intact distally. Bilateral upper extremities functional range of motion without pain. No gross deformities. No obvious dislocations. Left lower extremity functional range of motion. N o pain. No gross deformities. No obvious dislocations. Imaging: CT scan of the pelvis demonstrates no fracture of the right hip. There is some moderate os teoarthritis of the right hip. Assessment And Plan: Cathleen is a 76-year-old female with right hip pain and right hip osteoarthritis . Based on the patient's exam, the patient still has maintained some range of motion of her right hi p. She has no pain with range of motion of the hip. She does report some posterior hip pain, which may be some sciatica that can also be contributing to her hip pain. No surgical intervention is magen cated at this time. She may take NSAIDs as needed and mobilize as tolerated with the use of a walker . She has significant weakness. She may follow up in my clinic as needed. CV/MODL Voice ID: [id number] Report ID: [id number]
[2021-07-25] MEDS: SERTRALINE HCL 50 MG TAB PO SCH (21:06)
[2021-07-25] MEDS: DONEPEZIL HCL 5 MG TAB PO SCH (21:07)
[2021-07-26] MEDS: NA CHLORIDE 0.9% 1,000 ML IV SCH (03:28)
[2021-07-26 05:41] LABS: Absolute Lymphocytes (CBC) 3.2 K/uL (0.7-4.9); Hematocrit 31.7 % (36.0-45.0); Lymphocytes % 45.2 % (15.3-44.8); MPV 8.8 fL (7.6-11.3); RBC Red Blood Cell Count 3.51 M/uL (3.86-4.86)
[2021-07-26 06:09] LABS: Magnesium 2.5 mg/dL (1.8-2.4); Potassium 3.7 mmol/L (3.5-5.1)
[2021-07-26] MEDS: HYDROCODONE/APAP 5/325 MG TAB PO PRN ×2 (06:42→12:42)
[2021-07-26 07:06] LABS: Blood Morphology Comment NOT SEEN (NOT SEEN); White Blood Cell Scan OK (OK)
[2021-07-26 07:07] LABS: Platelet Estimate ADEQ
[2021-07-26] MEDS ORDERED: CEFTRIAXONE 1000 MG/VIAL ONE (07:48)
[2021-07-26] MEDS ORDERED: NA CHLORIDE 0.9% 50 ML ONE (08:00)
[2021-07-26] MEDS: CEFTRIAXONE 1,000 MG in NA CHLORIDE 0.9% 50 ML IVPB SCH (08:17)
[2021-07-26] MEDS: FERROUS SULFATE 325 MG TAB PO SCH (08:17)
[2021-07-26] MEDS: MULTIVIT W/ MINERAL TAB PO SCH (08:17)
[2021-07-26] MEDS: ENOXAPARIN 40 MG/0.4 ML SQ SCH (08:17)
[2021-07-26] MEDS: ENSURE ENLIVE 237 ML CAN PO SCH (08:18)
[2021-07-26] MEDS: LOSARTAN POTASSIUM 50 MG TABLET PO SCH (08:22)
[2021-07-26] MEDS: MEMANTINE HCL 10 MG TABLET PO SCH (08:22)
[2021-07-26] MEDS: PANTOPRAZOLE 40MG TABLET PO SCH (08:22)
[2021-07-26] MEDS ORDERED: AMPICILLIN/SULBACT 3 GM in NA CHLORIDE 0.9% 100 ML IVPB SCH (12:00)
--- NOTE | 2021-07-26 12:00 | P.CNS ---
Date of Consult: 07/26/21 Primary Care Provider: Cody Chief Complaint: weakness History of Present Illness: The patient is a 76-year-old female with past medical history of Alzheimer's, and hypertension who presented to the emergency department secondary to increased weakness and hypotension. Patient confused at bedside, unable to give history./All history obtained via chart review. Per chart review the patient was found at home by her son-in-law who is unable to get her up from her chair/did not respond to him. EMS was called, patient also had an episode of incontinence. Daughter reported low-grade fever and poor appetite. Blood cultures grew Enterococcus faecalis, urine culture also growing Enterococcus faecalis. Bacteremia due to UTI. Rocephin empirically started, Rocephin discontinued on 07/26 and Unasyn started as penicillins are optimal agent for this specific constantine teria. Patient currently denies nausea/vomiting/diarrhea/shortness of breath/chest pain. Chest x-ray negative for any acute findings, abdominal CT also negative for any acute findings. Allergies No Known Allergies Allergy (Unverified 07/22/21 00:41) Home Medications: Donepezil HCl 10 mg PO BEDTIME 07/22/21 Iron 27 mg PO DAILY 07/22/21 Losartan Potassium 100 mg PO DAILY 07/22/21 Memantine HCl 10 mg PO BID 07/22/21 One A Day Womens 50+ 1 tab PO DAILY 07/22/21 Pantoprazole [Protonix Tab] 40 mg PO DAILY 07/22/21 Sertraline HCl 75 mg PO BEDTIME 07/22/21 - Past Medical/Surgical History Diabetic: No -: Alzheimers -: HTN -: hip surgery -: bilateral knee surgery -: rotator cuff surgery -: hysterectomy -: appendectomy - Social History Alcohol use: No CD- Drugs: No Caffeine use: Yes Place of Residence: Home Review of Systems 10-point ROS is otherwise unremarkable Physical Examination Temp Pulse Resp BP Pulse Ox 97.6 F 64 17 160/77 H 97 07/26/21 08:00 07/26/21 08:00 07/26/21 08:00 07/26/21 08:00 07/26/21 08:00 General: Confused HEENT: Atraumatic, Normocephalic Neck: JVD not distended Respiratory: Clear to auscultation bilaterally, Normal air movement Cardiovascular: Regular rate/rhythm, Normal S1 S2 Gastrointestinal: Normal bowel sounds, Non-distended Integumentary: No rashes, No breakdown, No significant lesion Conclusions/Impression: Antibiotics Unasyn Start: 07/26 Rocephin Start: 07/22 Stop: 07/26 Assessment/plan Bacteremia secondary to urinary tract infections Blood and urine cultures obtained on 07/21 growing Enterococcus faecalis. Repeat blood cultures obtained on 07/23 showed no growth. Recommend treating for total antibiotic duration of 7 days. Dementia Hypertension -Medical management per primary team Plan of care discussed with Dr. Yanez Thank you for consultation
[2021-07-26 14:22] VITALS: BP 138/75; TEMP 98.1
--- NOTE | 2021-07-27 07:37 | EKG ---
Test Date: 2021-07-21 Test Time: 21:03:55 Basting Machine Operator: NELL MEASUREMENT RESULTS: Intervals: Rate: 64 CO: 140 QRSD: 88 QT: 434 QTc: 447 [place]: P: 28 CO: 140 QRS: 22 T: 52 INTERPRETIVE STATEMENTS: Normal sinus rhythm Nonspecific ST and T wave abnormality Abnormal ECG Compared to ECG 07/21/2021 21:02:37 No significant changes Electronically Signed On 07-27-21 07:27:43 TRAVEL WRITER by Gage Gordillo
== END 2021-07-26 15:36 | DRG 689 ==
LOC: ER 18:12 → ERHOLD 23:09 → 2ND 23:55
PROVIDERS: ADMIT Internal Medicine; ATTEND Internal Medicine
DX: N39.0 Urinary tract infection, site not specified (principal); G93.41 Metabolic encephalopathy; R78.81 Bacteremia; G30.9 Alzheimer's disease, unspecified; F02.80 Dementia in other diseases classified elsewhere, unspecified severity, without behavioral disturbance, psychotic disturbance, mood disturbance, and anxiety; I10 Essential (primary) hypertension; B95.2 Enterococcus as the cause of diseases classified elsewhere; M16.11 Unilateral primary osteoarthritis, right hip; Z74.09 Other reduced mobility; Z96.642 Presence of left artificial hip joint; Z23 Encounter for immunization; Z20.822 Contact with and (suspected) exposure to COVID-19
CPT/HCPCS: 0241U; 36415; 70450; 71045; 74176; 76377; 80048; 80053; 80076; 81003; 81015; 82947; 83605; 83735; 83880; 84100; 84132; 84145; 84439; 84443; 84484; 85025; 85610; 87040; 87077; 87086; 87088; 87186; 87205; 90471; 93005; 94760; 96374; 97112; 97116; 97161; 97530; 99285; J0295; J1650; J7030; Q2035; U0003

== ENCOUNTER 2021-10-01 12:27 | Emergency (ER) | payer OTHER ==
--- OUTSIDE RECORDS SUMMARY | 2021-10-01 12:37 | XMS REPORT | Continuity of Care Document ---
:1945 Author Organization [facility] t Address [address] [place] [address] Dr. Peña. [address] [place] [address] Care Team Providers Name Role Phone Cody Primary Care Physician Therapy, Covid Infusion Attending Clinician Unavailable Justin RIOS, A Attending Clinician Gracia ANDERSON Attending Clinician Unavailable Lorrie WRAY Attending Clinician Unavailable Only, Db Test Attending Clinician Unavailable Christopher RIOS Attending Clinician Payers Payer Name Policy Type Policy Number Effective Date Expiration Date S ource Problems Condition Condition Condition Status Onset Resolution Last Treating Co mments Source Name Details Category Date Date Treatment Clinician Date No known No known Disease Unive rs active active ity of problems problems [facility] Allergies, Adverse Reactions, Alerts Allergy Allergy Status Severity Reaction(s) Onset Inactive Treating Comm ents Source Name Type Date Date Clinician NO KNOWN Drug Active Univers ALLERGIE Class ity of [facility] Social History Social Habit Start Date Stop Date Quantity Comments Source Alcohol intake 2021-08-03 2021-08-03 Current [facility] 00:00:00 00:00:00 non-drinker of [facility] alcohol [place] (finding) Sex [birth year] Universit y of 00:00:00 00:00:00 [facility] Smoking Status Start Date Stop Date Source Never smoker [facility] Medications Ordered Filled Start Stop Current Ordering Indication Dosage Frequency Signature Comments Components Source Medication Medication Date Date Medication? Clinician (SIG) Name Name sotrovimab 2021- No [id number] 500mg 500 mg, IV Univers (XEVUDY) 1-29 01-29 Infusion, ity o f 500 mg in 16:30: 15:51 ONCE, [place] NaCl 0.9% 00 :00 Administer Medi kalyn (NS) 50 mL over 30 Branch MINI-BAG Minutes, On 08/06/21 at 1030, For [address] able 24 hours refrigerat ed or 6 hours at room temperatur e including transporta tion and infusion time.
GALANTAMINE Yes [id number] TAKE 1 Univers 8 mg tablet 6-24 TABLET BY ity of 00:00: MOUTH [place] 00 TWICE A Medical DAY Branch GALANTAMINE Yes [id number] TAKE 1 Univers 8 mg tablet 6-24 TABLET BY ity of 00:00: MOUTH [place] 00 TWICE A Medical DAY Branch GALANTAMINE Yes [id number] TAKE 1 Univers 8 mg tablet 6-24 TABLET BY ity of 00:00: MOUTH [place] 00 TWICE A Medical DAY Branch vitamin Yes 500ug Take 500 Unive rs B-12 (B-12 2-04 mcg by ity of DOTS) 500 15:04: mouth [place] mcg tablet 26 daily. Medical Branch B Complex Yes Take 1 Univer s Vitamins 2-04 TAB-CAP/M2 ity o f (B-50 15:04: by mouth [place] COMPLEX) 26 daily. [facility] multivit-mi Yes Take 1 Univ ers n/iron/foli 2-04 TAB-CAP/M2 it y of c/lutein 15:04: by mouth [place] (CENTRUM 26 daily. Medical SILVER Branch WOMEN ORAL) vitamin C Yes 1000mg Take 1,000 Univers with deon 2-04 mg by ity of hips 15:04: mouth [place] (VITAMIN C) 26 daily. Medica l 1,000 mg Branch tablet vitamin Yes 500ug Take 500 Unive rs B-12 (B-12 2-04 mcg by ity of DOTS) 500 15:04: mouth [place] mcg tablet 26 daily. Medical Branch B Complex Yes Take 1 Univer s Vitamins 2-04 TAB-CAP/M2 ity o f (B-50 15:04: by mouth [place] COMPLEX) 26 daily. Medical [facility] multivit-mi Yes Take 1 Univ ers n/iron/foli 2-04 TAB-CAP/M2 it y of c/lutein 15:04: by mouth [place] (CENTRUM 26 daily. [facility] SILVER [place] WOMEN ORAL) vitamin C Yes 1000mg Take 1,000 Univers with deon 2-04 mg by ity of hips 15:04: mouth [place] (VITAMIN C) 26 daily. Medica l 1,000 mg Branch tablet vitamin 2019- Yes 500ug Take 500 Unive rs B-12 (B-12 2-04 mcg by ity of DOTS) 500 15:04: mouth [place] mcg tablet 26 daily. Medical Branch B Complex 2018- Yes Take 1 Univer s Vitamins 2-04 TAB-CAP/M2 ity o f (B-50 15:04: by mouth [place] COMPLEX) 26 daily. Medical TbSR Branch multivit-mi Yes Take 1 Univ ers n/iron/foli 2-04 TAB-CAP/M2 it y of c/lutein 15:04: by mouth [place] (CENTRUM 26 daily. [facility] WOMEN ORAL) vitamin C Yes 1000mg Take 1,000 Univers with deon 2-04 mg by ity of hips 15:04: mouth [place] (VITAMIN C) 26 daily. Medica l 1,000 mg Branch tablet C,E,zinc,co Yes Take 1 Univ ers pper 2-04 TAB-CAP/M2 ity of 11/[id number]/ 15:04: [place] l[place] 25 daily. Medical ([facility] [place] ADULT 50 PLUS ORAL) C,E,zinc,co 2018- Yes Take 1 Univ ers pper 2-04 TAB-CAP/M2 ity of 11/[id number]/ 15:04: [place] 25 daily. Medical ([facility] ADULT 50 PLUS ORAL) C,E,zinc,co 2018- Yes Take 1 Univ ers pper 2-04 TAB-CAP/M2 ity of 11/cexpg9k/ 15:04: [place] 25 daily. Medical ([facility] ADULT 50 PLUS ORAL) traZODone 2017-07 Yes TAKE 1 Univer s 150 mg 2-13 TABLET BY ity of tablet 00:00: MOUTH [place] 00 EVERYDAY Medical AT BEDTIME Branch traZODone 2017-07 Yes TAKE 1 Univer s 150 mg 2-13 TABLET BY ity of tablet 00:00: MOUTH [place] 00 EVERYDAY Medical AT BEDTIME Branch traZODone 2017-07 Yes TAKE 1 Univer s 150 mg 2-13 TABLET BY ity of tablet 00:00: MOUTH [place] 00 EVERYDAY [facility] 2017-07 Yes 100mg Take 100 Univ ers 100 mg 1-26 mg by ity of tablet 00:00: mouth [place] 00 daily. Medical Branch losartan 2017-07 Yes 100mg Take 100 Univ ers 100 mg 1-26 mg by ity of tablet 00:00: mouth [place] 00 daily. Medical Branch losartan 2017-07 Yes 100mg Take 100 Univ ers 100 mg 1-26 mg by ity of tablet 00:00: mouth [place] 00 daily. [facility] Vital Signs Vital Name Observation Time Observation Value Comments Source Systolic blood 2021-08-06 16:46:00 147 mm[Hg] [facility] sity [facility] Diastolic blood 2021-08-06 16:46:00 79 mm[Hg] [facility] rate 2021-08-06 16:46:00 56 /min [facility] Body temperature 2021-08-06 16:46:00 36.78 [place] [facility] Respiratory rate 2021-08-06 16:46:00 15 /min [facility] Oxygen saturation in 2021-08-06 16:46:00 95 /min [facility] Arterial blood by [facility] Pulse oximetry [place] Body height 2021-08-06 15:05:00 170.2 cm [facility] Body weight 2021-08-06 15:05:00 67.132 kg [facility] BMI 2021-08-06 15:05:00 23.18 kg/m2 [facility] Body height 2021-08-03 22:27:00 170.2 cm [facility] Procedures This patient has no known procedures. Encounters Start End Encounter Admission Attending Care Care Encounter Source Date/Time Date/Time Type Type Clinicians Facility Department ID 2021-08-06 2021-08-06 Nurse Therapy, Adc Covid Infusion [facility] [id number] [facility] 09:00:00 10:00:00 Visit Ilir Anderson [id number] [id number] [id number] [facility] 053 Branch 2021-08-06 2021-08-06 Outpatient R [facility] [id number] Univers [facility]:00[facility]00 [facility]00[id number] 2021-08-06 Outpatient R JUSTIN [facility] [id number] Univers 09:00:00 [facility]00[facility] 2021-08-04 2021-08-04 Telephone Arlette Andrew [id number] Univers 00:00:00 00:00:00 [place] [id number] it y of [facility] [id number] Jono as [id number] [facility] 019 Branch 2021-08-03 2021-08-03 Urgent Only, Ang Db Test [facility] [id number] Univers 16:20:00 16:29:12 [facility] [id number] ity [facility] [id number] Jono as MIKAYLA?BLEA [phone] [place] [address] Branch MEDICAL OFFICE BUILDING Results This patient has no known results.
[2021-10-01] MEDS ORDERED: HYDROCODONE/APAP 10/325 TAB ONE (13:13)
[2021-10-01] MEDS ORDERED: IBUPROFEN 200 MG TAB PO ONE (13:13)
--- NOTE | 2021-10-01 14:20 | RAD REPORT ---
EXAM DESCRIPTION: RAD - Hip Left 2 View - 10/01/2021 1:50 pm CLINICAL HISTORY: PAIN COMPARISON: Hip Left 2 View dated 06/20/2019; Hip Left 2 View dated 11/22/2017 FINDINGS: No acute fracture. No malalignment. No significant focal degenerative changes. Intact left hip arthroplasty. IMPRESSION: No acute osseous abnormality involving the left hip.
--- NOTE | 2021-10-01 14:21 | RAD REPORT ---
EXAM DESCRIPTION: RAD - Pelvis - 10/01/2021 1:50 pm CLINICAL HISTORY: PAIN COMPARISON: Lumbar Spine 3 Views dated 10/01/2021; Hip Left 2 View dated 10/01/2021 FINDINGS: No acute fracture. No malalignment. Moderate to advanced degenerative changes are present at the right acetabulum. Left hip arthroplasty. The patient's left hip is rotated which obscures port ions of the left obturator ring. IMPRESSION: No acute osseous abnormality involving the pelvis.
--- NOTE | 2021-10-01 14:22 | RAD REPORT ---
EXAM DESCRIPTION: RAD - Lumbar Spine 3 Views - 10/01/2021 1:51 pm CLINICAL HISTORY: PAIN COMPARISON: LUMBAR SPINE 3 VIEWS dated 06/07/2015 FINDINGS: No acute fracture. 4 millimeters of retrolisthesis of L2 with respect to L3. Grade 1 anter olisthesis of L3 on L4. Disc height loss noted at multiple levels. Partially imaged scoliosis. Left h ip arthroplasty. IMPRESSION: No acute osseous abnormality involving the lumbar spine.
--- NOTE | 2021-10-01 14:44 | EDPHYS ---
Physician Documentation [facility] Name: Cathleen Coffey Age: 76 yrs Sex: Female : 1945 Arrival Date: 10/01/2021 Time: 12:29 Bed 25 Private MD: ED Physician Jem Young HPI: 10/01 14:30 This 76 yrs old Female presents to ER via Wheelchair with complaints of Fall solange Injury, Hip Pain. 14:30 Details of fall: The patient fell from an upright position, SLIDE OFF BED. Onset: The solange symptoms/episode began/occurred 1 day(s) ago. Associated injuries: The patient sustained injury to the head, contusion, hematoma, pain, swelling, tenderness. Severity of symptoms: At their worst the symptoms were mild. The patient has not experienced similar symptoms in the past, but family has similar symptoms. Historical: - Allergies: 12:42 No Known Allergies; ab2 - PMHx: 12:42 Alzheimer's disease; Hypertensive disorder; ab2 - Immunization history:: Adult Immunizations up to date. - Social history:: Smoking status: Patient denies any tobacco usage or history of. - Family history:: not pertinent. ROS: 14:30 Constitutional: Negative for fever, chills, and weight loss, Eyes: Negative for injury, solange pain, redness, and discharge, ENT: Negative for injury, pain, and discharge, Neck: Negative for injury, pain, and swelling, Cardiovascular: Negative for chest pain, palpitations, and edema, Respiratory: Negative for shortness of breath, cough, wheezing, and pleuritic chest pain, Abdomen/GI: Negative for abdominal pain, nausea, vomiting, diarrhea, and constipation, : Negative for injury, bleeding, discharge, and swelling, Skin: Negative for injury, rash, and discoloration, Neuro: Negative for headache, weakness, numbness, tingling, and seizure, Psych: Negative for depression, anxiety, suicide ideation, homicidal ideation, and hallucinations, Allergy/Immunology: Negative for hives, rash, and allergies, Endocrine: Negative for neck swelling, polydipsia, polyuria, polyphagia, and marked weight changes, Hematologic/Lymphatic: Negative for swollen nodes, abnormal bleeding, and unusual bruising. 14:30 Back: Positive for decreased range of motion, pain at rest, pain with movement, of the lumbar area. Exam: 14:30 Constitutional: This is a well developed, well nourished patient who is awake, alert, solange and in no acute distress. Head/Face: Normocephalic, atraumatic. Eyes: Pupils equal round and reactive to light, extra-ocular motions intact. Lids and lashes normal. Conjunctiva and sclera are non-icteric and not injected. Cornea within normal limits. Periorbital areas with no swelling, redness, or edema. ENT: Nares patent. No nasal discharge, no septal abnormalities noted. Tympanic membranes are normal and external auditory canals are clear. Oropharynx with no redness, swelling, or masses, exudates, or evidence of obstruction, uvula midline. Mucous membranes moist. Neck: Trachea midline, no thyromegaly or masses palpated, and no cervical lymphadenopathy. Supple, full range of motion without nuchal rigidity, or vertebral point tenderness. No Meningismus. Chest/axilla: Normal chest wall appearance and motion. Nontender with no deformity. No lesions are appreciated. Cardiovascular: Regular rate and rhythm with a normal S1 and S2. No gallops, murmurs, or rubs. Normal PMI, no JVD. No pulse deficits. Respiratory: Lungs have equal breath sounds bilaterally, clear to auscultation and percussion. No rales, rhonchi or wheezes noted. No increased work of breathing, no retractions or nasal flaring. Abdomen/GI: Soft, non-tender, with normal bowel sounds. No distension or tympany. No guarding or rebound. No evidence of tenderness throughout. Female : Normal external genitalia. Skin: Warm, dry with normal turgor. Normal color with no rashes, no lesions, and no evidence of cellulitis. Neuro: Awake and alert, GCS 15, oriented to person, place, time, and situation. Cranial nerves II-XII grossly intact. Motor strength 5/5 in all extremities. Sensory grossly intact. Cerebellar exam normal. Normal gait. Psych: Awake, alert, with orientation to person, place and time. Behavior, mood, and affect are within normal limits. 14:30 Back: pain, that is mild, ROM is painful, with all movement, normal spinal alignment noted, CVA tenderness, is absent, vertebral tenderness. Vital Signs: 12:40 BP 126 / 73; Pulse 73; Resp 17; Temp 98.3(TE); Pulse Ox 98% on R/A; Weight 62.14 kg; ab2 Height 5 ft. 7 in. (170.18 cm); Pain 10/10; 13:20 BP 131 / 60; Pulse 66; Resp 16; Pulse Ox 97% on R/A; ld1 14:25 BP 126 / 65; Pulse 67; Resp 16; Pulse Ox 98% on R/A; ld1 12:40 Body Mass Index 21.46 (62.14 kg, 170.18 cm) ab2 MDM: 12:46 Patient medically screened. solange 14:34 Differential diagnosis: fracture, multiple trauma, sprain, strain. Data reviewed: vital solange signs, nurses notes, radiologic studies, plain films. Data interpreted: athletic monitor: not applicable for this patient encounter. rate is 67 beats/min, rhythm is regular, Pulse oximetry: on room air is 67 %. Test interpretation: by ED physician or midlevel provider: plain radiologic studies. Counseling: I had a detailed discussion with the patient and/or guardian regarding: the historical points, exam findings, and any diagnostic results supporting the discharge/admit diagnosis, radiology results. 10/01 12:48 Order name: Pelvis XRAY; Complete Time: 14:29 solange 10/01 12:48 Order name: Hip Left 2 View XRAY; Complete Time: 14:29 solange 10/01 12:48 Order name: Lumbar Spine (3 Views) XRAY; Complete Time: 14:29 solange Administered Medications: 13:18 Drug: Motrin (ibuprofen) 600 mg Route: PO; ld1 14:52 Drug: [place] (HYDROcodone-acetaminophen) 10 mg-325 mg 1 tabs Route: PO; ld1 14:59 Follow up: Response: No adverse reaction ld1 Disposition Summary: 10/01/21 14:43 Discharge Ordered Location: Home solange Problem: new solange Symptoms: have improved solange Condition: Stable solange Diagnosis - Fall (on) (from) other stairs and steps solange - Low back pain solange - Pain in left hip solange Followup: solange - With: Private Physician - When: 2 - 3 days - Reason: Recheck today's complaints, Continuance of care, Re-evaluation by your physician Discharge Instructions: - Discharge Summary Sheet solange - Joint Pain solange - Arthritis solange - Acute Back Pain, Adult solange - Musculoskeletal Pain solange - Fall Prevention in the Home, Adult [facility] - Hip Pain [facility] - Fall Prevention in the Home, Adult, [id number]-px-Sntt [facility] Forms: - Medication Reconciliation Form [facility] - Thank You Letter [facility] - Antibiotic Education [facility] - Prescription Opioid Use [facility] Prescriptions: - Medrol (Dwaine) 4 mg Oral Tablets, Dose Pack - take 1 tablet by ORAL route as directed - follow package instructions; 1 solange packet; Refills: 0, Product Selection Permitted - Cyclobenzaprine 5 mg Oral Tablet - take 1 tablet by ORAL route 3 times per day As needed; 15 tablet; Refills: 0, [facility] Product Selection Permitted Signatures: Dispatcher [employer] EDJem Ford MD MD cha Dibbern, Lauren RN RN ld1 Husam Florentino Corrections: (The following items were deleted from the chart) 14:52 12:48 Urine Dipstick-Ancillary ordered. [facility] ld1
--- NOTE | 2021-10-01 14:44 | ER ---
Nurse's Notes [facility] Name: Cahtleen Coffey Age: 76 yrs Sex: Female : 1945 Arrival Date: 10/01/2021 Time: 12:29 Bed 25 Private MD: Diagnosis: Fall (on) (from) other stairs and steps;Low back pain;Pain in left hip Presentation: 10/01 12:40 Chief complaint: Patient's son or daughter states: "Last night about midnight she tried ab2 to get out of bed an slid and fell. She is c/o left hip pian and back pain. Her hip is very tender." Pt denies hitting head or LOC. Coronavirus screen: Vaccine status: Patient reports receiving the 2nd dose of the covid vaccine. Client denies travel out of the [place] in the last 14 days. At this time, the client does not indicate any symptoms associated with coronavirus-19. Ebola Screen: Patient negative for fever greater than or equal to 101.5 degrees Fahrenheit, and additional compatible Ebola Virus Disease symptoms Patient denies exposure to infectious person. Patient denies travel to an Ebola-affected area in the 21 days before illness onset. No symptoms or risks identified at this time. Initial Sepsis Screen: Does the patient meet any 2 criteria? No. Patient's initial sepsis screen is negative. Does the patient have a suspected source of infection? No. Patient's initial sepsis screen is negative. Risk Assessment: Do you want to hurt yourself or someone else? Patient reports no desire to harm self or others. Onset of symptoms is unknown. 12:40 Method Of Arrival: Wheelchair ab2 12:40 Acuity: MAINE 3 ab2 Triage Assessment: 12:43 General: Appears in no apparent distress. uncomfortable, Behavior is calm, cooperative, ab2 appropriate for age. Pain: Complains of pain in back and left hip. Neuro:. Cardiovascular: No deficits noted. Denies chest pain, shortness of breath. Historical: - Allergies: 12:42 No Known Allergies; ab2 - PMHx: 12:42 Alzheimer's disease; Hypertensive disorder; ab2 - Immunization history:: Adult Immunizations up to date. - Social history:: Smoking status: Patient denies any tobacco usage or history of. - Family history:: not pertinent. Screenin:20 Abuse screen: Denies threats or abuse. Denies injuries from another. Nutritional ld1 screening: No deficits noted. Tuberculosis screening: No symptoms or risk factors identified. Fall Risk None identified. Assessment: 13:20 General: Appears in no apparent distress. uncomfortable, Behavior is calm, cooperative, ld1 appropriate for age. Pain: Complains of pain in pelvis Pain does not radiate. Pain currently is 7 out of 10 on a pain scale. Quality of pain is described as throbbing. 13:20 Neuro: Level of Consciousness is awake, alert, obeys commands, Oriented to person. ld1 Cardiovascular: Capillary refill < 3 seconds Patient's skin is warm and dry. Respiratory: Airway is patent Respiratory effort is even, unlabored. GI: Abdomen is flat, non-distended. : No signs and/or symptoms were reported regarding the genitourinary system. EENT: No signs and/or symptoms were reported regarding the EENT system. Derm: No signs and/or symptoms reported regarding the dermatologic system. Musculoskeletal: No signs and/or symptoms reported regarding the musculoskeletal system. 14:25 Reassessment: Patient appears in no apparent distress at this time. Patient and/or ld1 family updated on plan of care and expected duration. Pain level reassessed. Vital Signs: 12:40 BP 126 / 73; Pulse 73; Resp 17; Temp 98.3(TE); Pulse Ox 98% on R/A; Weight 62.14 kg; ab2 Height 5 ft. 7 in. (170.18 cm); Pain 10/10; 13:20 BP 131 / 60; Pulse 66; Resp 16; Pulse Ox 97% on R/A; ld1 14:25 BP 126 / 65; Pulse 67; Resp 16; Pulse Ox 98% on R/A; ld1 12:40 Body Mass Index 21.46 (62.14 kg, 170.18 cm) ab2 ED Course: 12:29 Patient arrived in ED. am2 12:42 Triage completed. ab2 12:43 Arm band placed on left wrist. ab2 12:46 Jem Young MD is Attending Physician. solange 13:08 Gissel Vogel RN is Primary Nurse. ld1 13:20 Patient has correct armband on for positive identification. Placed in gown. Bed in low ld1 position. Call light in reach. Side rails up X2. hedis specialist on. Pulse ox on. NIBP on. Door closed. Noise minimized. Warm blanket given. 13:20 No provider procedures requiring assistance completed. ld1 13:52 Pelvis XRAY In Process Unspecified. EDMS 13:52 Hip Left 2 View XRAY In Process Unspecified. EDMS 13:52 Lumbar Spine (3 Views) XRAY In Process Unspecified. EDMS 14:59 Patient did not have IV access during this emergency room visit. ld1 Administered Medications: 13:18 Drug: Motrin (ibuprofen) 600 mg Route: PO; ld1 14:52 Drug: [place] (HYDROcodone-acetaminophen) 10 mg-325 mg 1 tabs Route: PO; ld1 14:59 Follow up: Response: No adverse reaction ld1 Outcome: 14:43 Discharge ordered by . solange 14:59 Discharged to home via wheelchair, with family. ld1 14:59 Condition: stable 14:59 Discharge instructions given to patient, family, Instructed on discharge instructions, follow up and referral plans. medication usage, Demonstrated understanding of instructions, follow-up care, medications, Prescriptions given X 2. 14:59 Patient left the ED. ld1 Signatures: Dispatcher [employer] Jem Coates MD MD cha Moreno, Amanda amGissel Hanley, KAMALA RN ld1 Husam Florentino2
[2021-10-01 15:58] VITALS: TEMP 98.3
[2021-10-01 16:01] VITALS: BP 126/65; O2SAT 98
== END 2021-10-01 14:59 | disposition home or self-care (01) ==
LOC: ER 12:27
DX: M25.552 Pain in left hip (principal); M54.50 Low back pain, unspecified; W06.XXXA Fall from bed, initial encounter; I10 Essential (primary) hypertension; G30.9 Alzheimer's disease, unspecified; F02.80 Dementia in other diseases classified elsewhere, unspecified severity, without behavioral disturbance, psychotic disturbance, mood disturbance, and anxiety
CPT/HCPCS: 72100; 72170; 99284

== ENCOUNTER 2021-11-07 17:04 | Inpatient (IN) | payer OTHER ==
--- OUTSIDE RECORDS SUMMARY | 2021-11-07 17:06 | XMS REPORT | Continuity of Care Document ---
:1945 Author Organization [facility] t Address [address] [place] [address] Dr. Pe[address]. [address] [place] [address] Care Team Providers Name Role Phone Cody [...] rs active active ity of problems problems [facility] Allergies, Adverse Reactions, Alerts Allergy Allergy Status Severity Reaction(s) Onset Inactive Treating Comm ents Source Name Type Date Date Clinician NO KNOWN Drug Active Univers ALLERGIE Class ity of [facility] Social History Social Habit Start Date Stop Date Quantity Comments Source Alcohol intake 2021-08-03 2021-08-03 Current [facility] 00:00:00 00:00:00 non-drinker of [facility] alcohol [place] (finding) Sex Ass[birth year] Universit y of 00:00:00 00:00:00 [facility] Smoking Status Start Date Stop Date Source Never smoker [facility] Medications Ordered Filled Start Stop Current Ordering Indication Dosage Frequency Signature Comments Components Source Medication Medication Date Date Medication? Clinician (SIG) Name Name sotrovimab 2021- No [id number] 500mg 500 mg, IV Univers (XEVUDY) 1-29 01-29 Infusion, ity o f 500 mg in 16:30: 15:51 ONCE, [place] NaCl 0.9% 00 :00 Administer Medi kalyn (NS) 50 mL over 30 Branch MINI-BAG Minutes, On 08/06/21 at 1030, For [address] able 24 hours refrigerat ed or 6 hours at room temperatur e including transporta tion and infusion time.
GALANTAMINE Yes [id number] TAKE 1 Univers 8 mg tablet 6-24 TABLET BY ity of 00:00: MOUTH [place] 00 TWICE A Medical DAY Branch GALANTAMINE Yes [id number] TAKE 1 Univers 8 mg tablet 6-24 TABLET BY ity of 00:00: MOUTH [place] 00 TWICE A Medical DAY Branch GALANTAMINE Yes [id number] TAKE 1 Univers 8 mg tablet 6-24 [...] by mouth [place] COMPLEX) [facility]. [facility] multivit-mi Yes Take 1 Univ ers [...] by mouth [place] COMPLEX) 26 daily. [facility] multivit-mi Yes Take 1 Univ ers n/iron/foli 2-04 TAB-CAP/M2 it y of c/lutein 15:04: by mouth [place] (CENTRUM [address] [facility] SILVER [place] WOMEN ORAL) vitamin C Yes 1000mg Take [...] 15:04: by mouth [place] (CENTRUM 26 daily. [facility] WOMEN ORAL) vitamin C Yes 1000mg Take 1,000 Univers with deon 2-04 mg by ity of hips 15:04: mouth [place] (VITAMIN C) 26 daily. Medica l 1,000 mg Branch tablet C,E,zinc,co Yes Take 1 Univ ers pper 2-04 TAB-CAP/M2 ity of 11/cggve4u/ 15:04: [place] mouth [place] l[place] 25 daily. Medical ([facility] [place] ADULT 50 PLUS ORAL) C,E,zinc,co 2018- Yes Take 1 Univ ers pper 2-04 TAB-CAP/M2 ity of 11/xuhvj6s/ 15:04: [place] 25 daily. Medical ([facility] ADULT 50 PLUS ORAL) C,E,zinc,co 2018- Yes Take 1 Univ ers pper 2-04 TAB-CAP/M2 ity of 11/dmskq6f/ 15:04: [place] 25 daily. Medical ([facility] ADULT 50 PLUS ORAL) traZODone 2017-07 [...] 00:00: MOUTH [place] 00 EVERYDAY Medical [facility] losartan 2017-07 Yes 100mg Take 100 Univ [...] of tablet 00:00: mouth [place] 00 daily. [facility] Vital Signs Vital Name Observation Time Observation Value Comments Source Systolic blood 2021-08-06 16:46:00 147 mm[Hg] [facility] Diastolic blood 2021-08-06 16:46:00 79 mm[Hg] [facility] rate 2021-08-06 16:46:00 56 /min [facility] Body temperature 2021-08-06 16:46:00 36.78 [facility] Respiratory rate 2021-08-06 16:46:00 15 /min [facility] Oxygen saturation in 2021-08-06 16:46:00 95 /min [facility] Arterial blood by [facility] Pulse oximetry [place] Body height 2021-08-06 15:05:00 170.2 cm [facility] Body weight 2021-08-06 15:05:00 67.132 kg [facility] BMI 2021-08-06 15:05:00 23.18 kg/m2 [facility] Body height 2021-08-03 22:27:00 170.2 cm [facility] Procedures This patient has no known procedures. Encounters Start End Encounter Admission Attending Care Care Encounter Source Date/Time Date/Time Type Type Clinicians Facility Department ID 2021-08-06 2021-08-06 Nurse Therapy, Adc Covid Infusion [facility] [id number] [facility] 09:00:00 10:00:00 Visit Ilir Anderson [id number] [id number] [id number] [facility] [address] Branch 2021-08-06 2021-08-06 Outpatient R [facility] [id number] Univers [facility]:00[facility]00 [id number] 2021-08-[facility] 2021-08-06 Outpatient R JUSTIN [facility] [id number] Univers 09:00:00 [facility]00[facility] 2021-08-04 2021-08-04 Telephone Arlette Andrew [id number] Univers 00:00:00 00:00:00 BELT [id number] it y of [facility] [id number] Jono as [id number] [facility] 0[address] Branch 2021-08-03 2021-08-03 Urgent Only, Ang Db Test [facility] [id number] Univers 16:20:00 16:29:12 [facility] [id number] ity [facility] [id number] Jono as MIKAYLA?BLEA [phone] [place] [address] Branch MEDICAL OFF[facility] Results This patient has no known results.
[2021-11-07 18:30] LABS: Urine Blood Trace-intact (Negative); Urine Glucose Negative (Negative); Urine Protein Negative (Negative); Urine Specific Gravity 1.015 (1.005-1.030)
[2021-11-07] MEDS ORDERED: NA CHLORIDE 0.9% 250 ML ONE (18:41)
[2021-11-07 18:43] LABS: Urine Bacteria NONE SEEN /HPF (<20); Urine RBC <5 /HPF (NONE SEEN)
[2021-11-07] MEDS ORDERED: CEFEPIME 2 GM VIAL ONE (18:58)
[2021-11-07] MEDS ORDERED: NA CHLORIDE 0.9% 100 ML IV ONE (18:58)
[2021-11-07 19:14] LABS: Absolute Lymphocytes (CBC) 2.2 K/uL (0.7-4.9); Hematocrit 35.8 % (36.0-45.0); Lymphocytes % 25.4 % (15.3-44.8); MPV 8.5 fL (7.6-11.3); RBC Red Blood Cell Count 3.82 M/uL (3.86-4.86)
[2021-11-07 19:56] LABS: SARS-COV-2 RT PCR NEGATIVE (NEGATIVE)
--- NOTE | 2021-11-07 19:59 | RAD REPORT ---
EXAM DESCRIPTION: CT - Head Brain Wo Cont - 11/07/2021 7:38 pm CLINICAL HISTORY: Mental status change, unknown cause COMPARISON: <Comparisons> TECHNIQUE: Axial 5 mm thick images of the head were obtained without IV contrast. All CT scans are performed using dose optimization technique as appropriate and may include automated exposure control or mA/KV adjustment according to patient size. FINDINGS: Exam has motion degradation limitation. No intracranial hemorrhage, mass, edema or shift of mid-line structures. No cortical level acute infa rction. No cortical edema or sulcal effacement. No abnormal extra-axial fluid collections. Moderate s everity atrophy present with ventricles in proportion. Advanced chronic ischemic change in the cerebr al white matter. Mastoid air cells and visualized portions of the paranasal sinuses are clear. No acute bony findings. IMPRESSION: No acute intracranial findings. Prominent atrophy and chronic ischemic change similar to comparison. Chronic ischemic changes can mask nonhemorrhagic acute infarction. MR brain followup can be obtained if there is ongoing concern for acute ischemia.
[2021-11-07 20:20] LABS: Albumin 3.6 g/dL (3.4-5.0); Bilirubin Total 0.6 mg/dL (0.2-1.0); Potassium 3.2 mmol/L (3.5-5.1); Protein, Total 8.3 g/dL (6.4-8.2); Troponin High Sensitivity 3.2 pg/mL (<58.9)
--- NOTE | 2021-11-07 20:26 | RAD REPORT ---
EXAM DESCRIPTION: RAD - Chest Single View - 11/07/2021 8:06 pm CLINICAL HISTORY: ams COMPARISON: Portable 10/10/2021 TECHNIQUE: AP portable chest image was obtained 11/07/2021 8:06 pm . FINDINGS: Lung volumes are low. No peripheral mass or consolidation. No significant failure or volum e overload. Heart and vasculature are normal. No measurable pleural effusion and no pneumothorax. No acute bone finding. Prominent right shoulder joint degenerative changes present in the left shoulder prosthesis changes. No acute aortic findings suspected. IMPRESSION: No acute cardiopulmonary process. No significant change from comparison.
--- NOTE | 2021-11-07 20:56 | ER ---
Nurse's Notes [facility] Name: Cathleen Coffey Age: 76 yrs Sex: Female : 1945 Arrival Date: 11/07/2021 Time: 17:05 Bed 15 Private MD: Ferdinand Ross Diagnosis: Altered mental status, unspecified Presentation: 11/07 17:24 Chief complaint: Patient's son or daughter states: "she was seen on Sunday at [place] [address] and was dx UTI and was given prescriptions; Dr Ross stated for her to come to ED to get IV antibiotics and fluids bc she may also be dehydrated" Pt states [place] last night. Coronavirus screen: Vaccine status: Patient reports receiving the 2nd dose of the covid vaccine. Client denies travel out of the [place] in the last 14 days. Ebola Screen: Patient denies exposure to infectious person. Patient denies travel to an Ebola-affected area in the 21 days before illness onset. Initial Sepsis Screen: Does the patient meet any 2 criteria? HR > 90 bpm. Does the patient have a suspected source of infection?. Risk Assessment: Do you want to hurt yourself or someone else? Patient reports no desire to harm self or others. Onset of symptoms was November 05, 2021. 17:24 Method Of Arrival: Wheelchair [facility] 17:24 Acuity: MAINE 3 vg1 Triage Assessment: 17:31 General: Appears in no apparent distress. uncomfortable, Behavior is calm, cooperative. vg1 Pain: Complains of pain in back Pain currently is 8 out of 10 on a pain scale. Neuro: Calloway Agitation-Sedation Scale (RASS): 0 - Alert and Calm Level of Consciousness is awake, alert, obeys commands, Oriented to person, place, time, situation. : Reports burning with urination, urinary frequency. Historical: - Allergies: 17:31 No Known Allergies; vg1 - Home Meds: 17:31 Hydrocodone-Acetaminophen Oral [Active]; Cefuroxime Oral [Active]; vg1 sulfamethoxazole-trimethoprim Oral [Active]; losartan oral [Active]; - PMHx: 17:31 Alzheimer's disease; Hypertensive disorder; vg1 - Immunization history:: Client reports receiving the 2nd dose of the Covid vaccine. - Social history:: Smoking status: Patient denies any tobacco usage or history of. Screenin:03 Abuse screen: Denies threats or abuse. Denies injuries from another. Nutritional ld1 screening: No deficits noted. Tuberculosis screening: No symptoms or risk factors identified. Fall Risk None identified. Assessment: 19:03 General: Appears in no apparent distress. comfortable, Behavior is calm, cooperative, ld1 appropriate for age. Pain: Complains of pain in back Pain does not radiate. Pain currently is 8 out of 10 on a pain scale. Quality of pain is described as throbbing. Neuro: Level of Consciousness is awake, alert, obeys commands, Oriented to person, place, time, situation. Cardiovascular: Capillary refill < 3 seconds Patient's skin is warm and dry. Rhythm is regular. Respiratory: Airway is patent Respiratory effort is even, unlabored, Respiratory pattern is regular, symmetrical. GI: Abdomen is flat, non-distended. : Reports burning with urination, urgency, urinary frequency. EENT: No signs and/or symptoms were reported regarding the EENT system. Derm: No signs and/or symptoms reported regarding the dermatologic system. Musculoskeletal: No signs and/or symptoms reported regarding the musculoskeletal system. Vital Signs: 17:24 BP 104 / 70; Pulse 114; Resp 16; Temp 99.6(O); Pulse Ox 99% ; Weight 61.69 kg; Pain vg1 8/10; 19:03 BP 124 / 79; Pulse 76; Resp 18; Pulse Ox 100% on R/A; ld1 20:15 BP 109 / 71; Pulse 74; Resp 17; Pulse Ox 96% on R/A; ld1 ED Course: 17:05 Patient arrived in ED. mr 17:06 Ferdinand Ross MD is Private Physician. mr 17:31 Triage completed. vg1 17:31 Arm band placed on. vg1 18:02 Jose Wyatt PA is PHCP. [facility] 18:02 Mychal Landin MD is Attending Physician. [facility] 18:05 Gissel Vogel, KAMALA is Primary Nurse. ld1 18:34 Urine Culture Sent. ld1 18:34 Urine Microscopic Only Sent. ld1 19:03 Patient has correct armband on for positive identification. Placed in gown. Bed in low ld1 position. Call light in reach. Side rails up X2. quality assurance monitor chassis on. Pulse ox on. NIBP on. Door closed. Noise minimized. Warm blanket given. 19:03 No provider procedures requiring assistance completed. Inserted saline lock: 20 gauge ld1 in right antecubital area, using aseptic technique. Blood collected. 19:06 Initial lab(s) drawn, by ok, sent to lab. COVID swab sent to lab. Flu and/or RSV swab 5 sent to lab. Inserted saline lock: 22 gauge in left Blood collected. 19:08 Blood Culture Adult (2) Sent. 5 19:08 CMP Sent. 5 19:08 CBC with Diff Sent. 5 19:08 Procalcitonin Sent. 5 19:09 Lactate Sent. 5 19:09 Troponin High Sensitivity Sent. mh5 19:40 CT Head Brain wo Cont In Process Unspecified. EDMS 20:08 Chest Single View XRAY In Process Unspecified. EDMS 20:55 Ferdinand Ross MD is Hospitalizing Provider. [facility] 21:14 Inserted saline lock: 24 gauge in right antecubital area, using aseptic technique. vc1 22:09 Patient admitted, IV remains in place. ld1 Administered Medications: 18:32 Drug: NS 0.9% 250 ml Route: IV; Rate: bolus; Site: left antecubital; ld1 19:03 Follow up: Response: No adverse reaction; IV Status: Completed infusion ld1 19:02 Drug: Cefepime 2 grams Route: IVPB; Rate: 200 ml/hr; Infused Over: 30 mins; Site: left ld1 antecubital; Outcome: 20:55 Decision to Hospitalize by Provider. [facility] 22:08 Admitted to Med/surg accompanied by tech, via wheelchair, room 213, with chart, Report ld1 called to KAMALA Ross 22:08 Condition: stable 22:08 Instructed on the need for admit. 22:12 Patient left the ED. ld1 Signatures: Dispatcher [employer] EDMS Jose Wyatt PA PA jmm BiggsBeatrice mr ChackoVenus 5 Jane Muñoz, RN RN vg1 Gissel Vogel RN RN ld1 Saumya Cook RN RN vc1 Corrections: (The following items were deleted from the chart) 19:13 18:29 SARS-COV-2 RT PCR+MOL.LAB.BRZ drawn and sent. ld1 EDMS 19:13 19:02 Influenza Screen (A \\T\\ B)+BA.LAB.MAXIMO drawn and sent. ld1 EDMS
--- NOTE | 2021-11-07 20:56 | EDPHYS ---
Physician Documentation [facility] Name: Cathleen Coffey Age: 76 yrs Sex: Female : 1945 Arrival Date: 11/07/2021 Time: 17:05 Bed 15 Private MD: Ferdinand Ross ED Physician Mychal Landin HPI: 11/07 18:44 This 76 yrs old Female presents to ER via Wheelchair with complaints of Urinary Problem.jmm 18:44 Onset: The symptoms/episode began/occurred gradually, 2 day(s) ago. jmm 18:44 Modifying factors: The symptoms are alleviated by nothing, the symptoms are aggravated jmm by nothing. Associated signs and symptoms: Pertinent positives: dysuria, Pertinent negatives: fever. This is a 76-year-old female with history of Alzheimer's dementia and hypertension the presents emerged department with increased confusion bleeding this past Sunday. Patient was evaluated at [place] [facility] diagnosed with a UTI. Family states symptoms of worsened with confusion. Patient also complains of lower back pain. Advised by their PCP to come to the ER for admission for IV antibiotics. Historical: - Allergies: 17:31 No Known Allergies; vg1 - Home Meds: 17:31 Hydrocodone-Acetaminophen Oral [Active]; Cefuroxime Oral [Active]; vg1 sulfamethoxazole-trimethoprim Oral [Active]; losartan oral [Active]; - PMHx: 17:31 Alzheimer's disease; Hypertensive disorder; vg1 - Immunization history:: Client reports receiving the 2nd dose of the Covid vaccine. - Social history:: Smoking status: Patient denies any tobacco usage or history of. ROS: 18:44 Cardiovascular: Negative for chest pain, palpitations, and edema, Respiratory: Negative jmm for shortness of breath, cough, wheezing, and pleuritic chest pain, Abdomen/GI: Negative for abdominal pain, nausea, vomiting, diarrhea, and constipation. 18:44 Constitutional: Positive for fever. 18:44 Neuro: Positive for altered mental status. 18:44 All other systems are negative. Exam: 18:44 Constitutional: This is a well developed, well nourished patient who is awake, alert, jmm and in no acute distress. Head/Face: atraumatic. Eyes: EOMI, no conjunctival erythema appreciated ENT: Moist Mucus Membranes Neck: Trachea midline, Supple Chest/axilla: Normal chest wall appearance and motion. Cardiovascular: Regular rate and rhythm. No edema appreciated Respiratory: Normal respirations, no respiratory distress appreciated Abdomen/GI: Non distended, soft Back: Normal ROM Skin: General appearance color normal MS/ Extremity: Moves all extremities, no obvious deformities appreciated, no edema noted to the lower extremities 18:44 Neuro: Orientation: unable to test, the patient has a history of dementia. 18:44 Psych: Behavior/mood is pleasant, cooperative. Vital Signs: 17:24 BP 104 / 70; Pulse 114; Resp 16; Temp 99.6(O); Pulse Ox 99% ; Weight 61.69 kg; Pain vg1 8/10; 19:03 BP 124 / 79; Pulse 76; Resp 18; Pulse Ox 100% on R/A; ld1 20:15 BP 109 / 71; Pulse 74; Resp 17; Pulse Ox 96% on R/A; ld1 MDM: 18:14 Patient medically screened. [facility] 20:54 Data reviewed: vital signs, nurses notes. Counseling: I had a detailed discussion with taj the patient and/or guardian regarding: the historical points, exam findings, and any diagnostic results supporting the discharge/admit diagnosis, lab results, radiology results, the need for further work-up and treatment in the hospital. ED course: I discussed the patient with Dr. Ross, recommended admission for observation for IV hydration, IV antibiotics.. 11/07 18:16 Order name: CBC with Diff; Complete Time: 19:29 [facility] 11/07 18:16 Order name: CMP; Complete Time: 20:22 [facility] 11/07 18:16 Order name: Blood Culture Adult (2) [facility] 11/07 18:16 Order name: Urine Culture [facility] 11/07 18:16 Order name: Urine Microscopic Only; Complete Time: 18:49 [facility] 11/07 18:17 Order name: Troponin High Sensitivity; Complete Time: 20:22 [facility] 11/07 18:30 Order name: Urine Dipstick-Ancillary; Complete Time: 18:30 [facility] 11/07 18:34 Order name: Lactate; Complete Time: 19:56 [facility] 11/07 18:34 Order name: Procalcitonin; Complete Time: 19:56 [facility] 11/07 19:13 Order name: COVID-19/FLU A+B; Complete Time: 19:58 EDMS 11/07 21:02 Order name: Basic Metabolic Panel EDMS 11/07 21:02 Order name: Basic Metabolic Panel EDMS 11/07 18:16 Order name: Saline Lock; Complete Time: 19:05 [facility] 11/07 18:50 Order name: CT Head Brain wo Cont; Complete Time: 20:03 [facility] 11/07 18:50 Order name: Chest Single View XRAY; Complete Time: 20:28 [facility] 11/07 21:02 Order name: Regular EDMS 11/07 21:02 Order name: CBC with Automated Diff EDMS 11/07 21:02 Order name: CBC with Automated Diff EDMS Administered Medications: 18:32 Drug: NS 0.9% 250 ml Route: IV; Rate: bolus; Site: left antecubital; ld1 19:03 Follow up: Response: No adverse reaction; IV Status: Completed infusion ld1 19:02 Drug: Cefepime 2 grams Route: IVPB; Rate: 200 ml/hr; Infused Over: 30 mins; Site: left ld1 antecubital; Disposition: 11/08 12:23 Co-signature as Attending Physician, Mychal Landin MD. rn Disposition Summary: 11/07/21 20:55 Hospitalization Ordered Hospitalization Status: Observation [facility] Provider: Ferdinand Ross Location: Telemetry/MedSur (observation) [facility] Condition: Stable [facility] Problem: an acute exacerbation jmm Symptoms: have improved jm Bed/Room Type: Standard [facility] Room Assignment: 213(11/07/21 21:12) cg Diagnosis - Altered mental status, unspecified [facility] Forms: - Medication Reconciliation Form [facility] - SBAR form jm Signatures: Dispatcher [employer] EDMS Jose Wyatt PA PA jmm Mychal Landin MD MD rn Garcia, Cindy, RN RN cg Jane Muñoz RN RN vg1 Gissel Vogel RN RN ld1 Corrections: (The following items were deleted from the chart) 11/07 19:13 18:20 SARS-COV-2 RT PCR+MOL.LAB.BRZ ordered. EDMI EDMS 19:13 18:50 Influenza Screen (A \T\ B)+BA.LAB.BRZ ordered. EDMI EDMS 21:12 20:55 jmm cg
[2021-11-07] MEDS ORDERED: ACETAMINOPHEN 500 MG TAB PO PRN (20:59)
[2021-11-07] MEDS ORDERED: ONDANSETRON 4 MG/2 ML VIAL IV PRN (20:59)
[2021-11-07] MEDS ORDERED: HYDROCODONE/APAP 5/325 MG TAB PO PRN (22:53)
[2021-11-07] MEDS: CYCLOBENZAPRINE 10 MG TAB PO SCH ×2 (23:16→23:17)
[2021-11-07] MEDS: NA CHLORIDE 0.9% 1,000 ML IV SCH (23:19)
[2021-11-07 23:23] VITALS: BMI 20.9
[2021-11-08] MEDS: NA CHLORIDE 0.9% 1,000 ML IV SCH ×2 (06:48→18:39)
[2021-11-08 06:50] LABS: Absolute Lymphocytes (CBC) 2.1 K/uL (0.7-4.9); Hematocrit 32.7 % (36.0-45.0); Lymphocytes % 33.9 % (15.3-44.8); MPV 7.8 fL (7.6-11.3); RBC Red Blood Cell Count 3.49 M/uL (3.86-4.86)
[2021-11-08 07:01] LABS: Potassium 3.5 mmol/L (3.5-5.1)
[2021-11-08] MEDS ORDERED: PNEUMOCOCCAL VACCINE 0.5 ML IMVAC ONE (08:00)
[2021-11-08] MEDS: CYCLOBENZAPRINE 10 MG TAB PO SCH (08:29)
[2021-11-08] MEDS ORDERED: ACETAMINOPHEN 500 MG TAB PO PRN (10:02)
[2021-11-08] MEDS ORDERED: ONDANSETRON 4 MG (ODT) TAB PO PRN (10:02)
[2021-11-08] MEDS ORDERED: CYCLOBENZAPRINE 10 MG TAB PO PRN (10:02)
--- NOTE | 2021-11-08 12:37 | PN ---
Date of Progress Note: 11/08/2021 The patient seems somewhat more comfortable than she was apparently on admission. This morning, her orientation is unchanged; however, she has long-standing Alzheimer, which may be progressing. Her pr oblem consists of pain in the inguinal area and pelvic area. This will be x-rayed to see if perhaps there is a stress fracture. Her daughter states she has been mobilizing using a wheelchair and walke r and able to turn in bed up until this acute episode, which began similar to her prior UTI a number of weeks ago. Since that time, she has had increased pain. Her CT scans has been stable with signif icant changes. Radiologist suggested an MRI to rule out another underlying issue and I think this sh ould be done prior to her disposition. The UTI situation is now well and we will obtain a bladder sc an. Possibly secondary to , we will hold some of her Alzheimer medications. The BP medica tion has been prescribed by Pain Management, which she states up until now has been held with hydroco done on a regular basis. Tramadol was ineffective and in fact changed her mood altogether. She has been on outpatient antibiotics. We will therefore continue the Maxipime at least for the next day or so. Possibility of using long-term suppressive antibiotics will also be considered at the time of d isposition. The consist of back to rehab where she was a couple of months ago and/or at [facility]. Discussion of end of life treatment was made with the daughter who is the [id number]. I t was felt she should be treated as a do not intubate. We will continue with IV fluids. She has a _ problem at home. According to the daughter, once again she requires feeding with assistanc e. HR/MODL Voice ID: [id number] Report ID: [id number]
--- NOTE | 2021-11-08 13:39 | RAD REPORT ---
EXAM DESCRIPTION: MRI - Brain W/Wo Cont - 11/08/2021 1:28 pm CLINICAL HISTORY: AMS COMPARISON: Head Brain Wo Cont dated 11/07/2021 TECHNIQUE: Sagittal and axial T1-weighted images were obtained. Axial PD/heavily T2-weighted and T2- FLAIR images were obtained along with axial DWI/ADC mapping sequences. Coronal heavily T2 weighted s equence obtained. Axial and coronal post-contrast T1-weighted images were also obtained. A 15 ml Mul tihance contrast following utilized. FINDINGS: No intracranial hemorrhage, mass or acute infarction. There is no edema or shift of midli ne structures. No extra-axial fluid collections. Gutiérrez-matter/white matter junction is preserved. Sig nal voids are seen as a normal finding in the major intracranial vessels. Patient has prominent atrop hy change matching the CT study. Ventriculomegaly is present in proportion to the amount of volume lo ss. Advanced chronic ischemic change seen throughout the cerebral white matter sparing the brainstem, thalamus and basal ganglia tissues of any significant component. Post-contrast images show normal enhancement. No dural thickening. Mastoid air cells and paranasal sinuses are clear. IMPRESSION: No acute infarction or other acute intracranial finding identified. Advanced cerebral atrophy with mild cerebellar atrophy. Advanced chronic ischemic change seen in the cerebral white matter. Ventricles are in proportion to the amount of volume loss.
--- NOTE | 2021-11-08 13:53 | RAD REPORT ---
EXAM DESCRIPTION: RAD - Pelvis - 11/08/2021 1:38 pm CLINICAL HISTORY: mobility issues COMPARISON: Pelvis dated 10/01/2021 TECHNIQUE: AP imaging of the pelvis was obtained. FINDINGS: No acute fractures seen. Lower lumbar, SI joint sacral ala and pubic symphysis degenerativ e changes are again noted and stable. Very advanced right hip joint degenerative change matches the study. Left prosthesis in place with no acute left hip implant or bone finding. Moderate stool volume distends the rectum. IMPRESSION: No acute pelvic finding. Above detailed findings match the October 01 study.
[2021-11-08] MEDS: HYDROCODONE/APAP 5/325 MG TAB PO SCH ×2 (14:29→20:25)
[2021-11-08 15:14] LABS: Urine Appearance Clear (Clear); Urine Bilirubin Negative (Negative); Urine Blood Trace-lysed (Negative); Urine Color Yellow (Yellow); Urine Glucose Negative (Negative); Urine Protein Negative (Negative); Urine Urobilinogen 0.2 mg/dL (0.2-1.0)
[2021-11-08 15:37] LABS: Urine Amorphous Sediment 1+ /HPF (NONE SEEN); Urine Bacteria <20 /HPF (<20); Urine Mucus 1+ /HPF (NONE SEEN)
[2021-11-08] MEDS ORDERED: SERTRALINE HCL 50 MG TAB PO SCH (21:00)
[2021-11-08] MEDS ORDERED: DONEPEZIL HCL 5 MG TAB PO SCH (21:00)
[2021-11-08] MEDS ORDERED: PANTOPRAZOLE 40MG TABLET PO SCH (21:00)
[2021-11-09] MEDS: NA CHLORIDE 0.9% 1,000 ML IV SCH ×2 (04:13→13:13)
[2021-11-09] MEDS: HYDROCODONE/APAP 5/325 MG TAB PO SCH ×2 (08:11→13:11)
[2021-11-09] MEDS ORDERED: CRANBERRY FRUIT EXTRACT 400 MG CAP PO SCH (09:00)
[2021-11-09] MEDS ORDERED: LOSARTAN POTASSIUM 50 MG TABLET PO SCH (09:00)
[2021-11-09 09:23] VITALS: O2SAT 97
[2021-11-09 17:10] VITALS: BP 130/65; TEMP 99.1
--- NOTE | 2021-11-14 02:53 | HP ---
Date of Admission: 11/08/2021 Chief Complaint: All information is obtained through the family as the patient is not awake, diagnos ed with Alzheimer's progressive a number of months ago. In any event, they state that basically prob lems started a few days prior to this presentation and they noted she was more confused and weaker th an usual . I gave her some antibiotics for UTI, which she has had a prior episode a couple of months over and was presented in the same way. She came home. They tried to either hydrate her, however, then she became more bed-ridden than usual, more uncomfortable, and had difficulty controll ing her symptoms, therefore I sent her to the emergency room for probable IV antibiotics. The patient has also had hip replacement and shoulder surgery in the past, 5-6 years ago. Past History: As above. The patient has had consultations with Pain Management who has her on hydrocodone. Cardiovascular pr oblems, for which she is on hypertensive medication. Mental status has also been evaluated and treat ed as mentioned above. Significant altered mental status. Social History: Nonsmoker, nondrinker. Family History: Noncontributory. Physical Examination: General: Patient is an elderly, disoriented female, in some distress. Vital Signs: Stable. Head and Neck: Normocephalic. Pupils equal, reactive to light and accommodation. Fundi negative. Trachea midline. Thyroid not palpable. ENT: Negative. Chest: Clear to P and A. Cardiovascular: PMI in the midclavicular line. Heart: Sounds normal. Peripheral pulses are present and equal bilaterally. Abdomen: No organomegaly. Extremities: Good tone and movement bilaterally. Tenderness over right and the left iliac crest. D ecreased motion of lower extremities in all directions. Upper extremities seem to be within normal l imits. Rectal/Pelvic: Deferred. Impression: 1.Acute urinary tract infection, probable pyelonephritis. 2.Dehydration. 3.Osteoarthritis, multiple joints. 4.Altered mental status. 5.Hypertension, controlled. Plan: Patient will be admitted, placed on IV antibiotics, IV fluids, analgesics, and workup ensued a s far as the possibility of occult fracture in the hip and pelvic area, and depending on the results of the treatment, the patient will be able to return home or perhaps, if significant, it will be magen cated. the family has made arrangements for her care at home, which has been accomplished . /JOHN Voice ID: [id number]
== END 2021-11-09 16:13 | disposition home or self-care (01) | DRG 690 ==
LOC: ER 17:04 → ERHOLD 20:58 → 2ND 22:10 → OBSVTOIN 11-08 22:15
PROVIDERS: ADMIT Family Medicine; ATTEND Family Medicine
DX: N10 Acute pyelonephritis (principal); G93.40 Encephalopathy, unspecified; E86.0 Dehydration; M19.90 Unspecified osteoarthritis, unspecified site; I10 Essential (primary) hypertension; G30.9 Alzheimer's disease, unspecified; F02.80 Dementia in other diseases classified elsewhere, unspecified severity, without behavioral disturbance, psychotic disturbance, mood disturbance, and anxiety; Z20.822 Contact with and (suspected) exposure to COVID-19
CPT/HCPCS: 0240U; 36415; 70450; 70553; 71045; 72170; 80048; 80053; 81001; 81003; 81015; 83605; 84145; 84484; 85025; 87040; 87086; 87088; 90471; 90732; 92610; 96365; 96375; 97162; 97530; 99285; A9577; G0378; J0692; J7030; J7050

== ENCOUNTER 2022-06-05 11:47 | Emergency (ER) | payer OTHER ==
--- OUTSIDE RECORDS SUMMARY | 2022-06-05 11:52 | XMS REPORT | Continuity of Care Document ---
:1945 Author Organization [facility] t Address [address] [place] [address] Dr. Peña. [address] [place] [address] Care Team Providers Name Role Phone Ferdinand Ross Primary Care Physician Therapy, Adc Covid Infusion Attending Clinician Unavailable Ilir Anderson MD Attending Clinician ILIR ANDERSON Attending Clinician Unavailable Arlette Andrew RN Attending Clinician Unavailable Only, Ang Db Test Attending Clinician Unavailable Archie Quintero MD Attending Clinician ARCHIE QUINTERO Attending Clinician Unavailable Doctor Unassigned, [place] Attending Clinician Unavailable Payers Payer Name Policy Type Policy Number Effective Date Expiration Date S ource Problems Condition Condition Condition Status Onset Resolution Last Treating Co mments Source Name Details Category Date Date Treatment Clinician Date No known No known Disease Unive rs active active ity of problems problems [facility] Allergies, Adverse Reactions, Alerts Allergy Allergy Status Severity Reaction(s) Onset Inactive Treating Comm ents Source Name Type Date Date Clinician NO KNOWN Drug Active Univers ALLERGIE Class ity of S [facility] Social History Social Habit Start Date Stop Date Quantity Comments Source Alcohol intake 2021-08-03 2021-08-03 Current [facility] 00:00:00 00:00:00 non-drinker of [facility] alcohol [place] (finding) Sex Ass[birth year] Universit y of 00:00:00 00:00:00 [facility] Smoking Status Start Date Stop Date Source Never smoker [facility] Medications Ordered Filled Start Stop Current Ordering Indication Dosage Frequency Signature Comments Components Source Medication Medication Date Date Medication? Clinician (SIG) Name Name betsey 2021- No [id number] 500mg 500 mg, IV Univers (XEVUDY) 08-06 Infusion, ity o f 500 mg in 16:30: 15:51 ONCE, [place] NaCl 0.9% 00 :00 Administer Medi kalyn (NS) 50 mL over 30 Branch MINI-BAG Minutes, On 08/06/21 at 1030, For [address] able 24 hours refrigerat ed or 6 hours at room temperatur e including transporta tion and infusion time.
GALANTAMINE Yes [id number] TAKE 1 Univers 8 mg tablet 6-24 TABLET BY ity of 00:00: MOUTH [place] 00 TWICE A Medical DAY Branch GALANTAMINE Yes [id number] TAKE 1 Univers 8 mg tablet 6-24 TABLET BY ity of 00:00: MOUTH [place] 00 TWICE A Medical DAY Branch GALANTAMINE Yes [id number] TAKE 1 Univers 8 mg tablet 6-24 [...] 15:04: by mouth [place] (CENTRUM 26 daily. [facility] WOMEN ORAL) vitamin C Yes 1000mg Take 1,000 Univers with deon 2-04 mg by ity of hips 15:04: mouth [place] (VITAMIN C) 26 daily. Medica l 1,000 mg Branch tablet vitamin 2019- Yes 500ug Take 500 Unive rs B-12 (B-12 2-04 mcg by ity of DOTS) 500 15:04: mouth [place] mcg tablet 26 daily. [facility] B Complex Yes Take 1 Univer s Vitamins 2-04 TAB-CAP/M2 ity o f (B-50 15:04: by mouth [place] COMPLEX) 26 daily. [facility] multivit-mi Yes Take 1 Univ ers n/iron/foli 2-04 TAB-CAP/M2 it y of c/lutein 15:04: by mouth [place] (CENTRUM 26 daily. [facility] WOMEN ORAL) vitamin C Yes 1000mg Take 1,000 Univers with deon 2-04 mg by ity of hips 15:04: mouth [place] (VITAMIN C) 26 daily. Medica l 1,000 mg Branch tablet C,E,zinc,co Yes Take 1 Univ ers pper 2-04 TAB-CAP/M2 ity of 11/iyvun3f/ 15:04: [place] 25 daily. Medical ([facility] ADULT 50 PLUS ORAL) C,E,zinc,co 2018- Yes Take 1 Univ ers pper 2-04 TAB-CAP/M2 ity of 11/tzgec3v/ 15:04: [place] 25 daily. Medical ([facility] ADULT 50 PLUS ORAL) C,E,zinc,co Yes Take 1 Univ ers pper 2-04 TAB-CAP/M2 ity of 11/qbggi2i/ 15:04: [place] 25 daily. Medical ([facility] ADULT 50 PLUS ORAL) traZODone 2017-07 Yes TAKE 1 Univer s 150 mg 2-13 TABLET BY ity of tablet 00:00: MOUTH [place] 00 EVERYDAY Medical AT BEDTIME [place] traZODone 2017-07 Yes TAKE 1 Univer s 150 mg 2-13 TABLET BY ity of tablet 00:00: MOUTH [place] 00 EVERYDAY Medical AT BEDTIME Branch traZODone 2017-07 Yes TAKE 1 Univer s 150 mg 2-13 TABLET BY ity of tablet 00:00: MOUTH [place] 00 EVERYDAY Medical AT BEDTIME Branch losartan 2017-07 Yes 100mg Take 100 [...] 00:00: mouth [place] 00 daily. Medical Branch Vital Signs Vital Name Observation Time Observation Value Comments Source Systolic blood 2021-08-06 16:46:00 147 [facility] Diastolic blood 2021-08-06 16:46:00 79 mm[facility]Hg[facility] 2021-08-06 16:46:00 56 /min [facility] Body temperature 2021-08-06 16:46:00 36.78 [facility] Respiratory rate 2021-08-06 16:46:00 15 /[facility] Oxygen saturation in 2021-08-06 16:46:00 95 /min [facility] Arterial blood by [facility] Pulse oximetry [place] Body height 2021-08-06 15:05:00 170.2 cm [facility] Body weight 2021-08-06 15:05:00 67.132 kg [facility] BMI 2021-08-06 15:05:00 23.18 kg/m2 [facility] Body height 2021-08-03 22:27:00 170.2 cm [facility] Procedures This patient has no known procedures. Encounters Start End Encounter Admission Attending Care Care Encounter Source Date/Time Date/Time Type Type Clinicians Facility Department ID 2021-08-06 2021-08-06 Nurse Therapy, Adc Covid Infusion [facility] [id number] Univers 09:00:00 10:00:00 Visit AndersonJimenez leemirta Fagan SHY [id number] ity of [facility] [id number] [place] SUR[place] [id number] [facility] 053 Branch 2021-08-06 2021-08-06 Outpatient R NGOZI [facility] [id number] Univers 09:00:00 09:00:00 ILIR price [facility] 2021-08-04 2021-08-04 Telephone Arlette Andrew [id number] Univers 00:00:00 00:00:00 KELSEY [id number] it y of HOSPITAL [id number] [place] as [phone] [facility] 019 Branch 2021-08-03 2021-08-03 Urgent Only, Ang Db Test [facility] [id number] Univers 16:20:00 16:29:12 Jenny Quintero [facility] [id number] ity of [place] [id number] [place]o as MIKAYLA?BLEA [phone] [address] MEDICAL OFFICE BUILDING 2021-08-03 2021-08-03 Outpatient R LEON [facility] [id number] Univers 16:20:00 16:29:12 ARCHIE price [facility] 2021-08-03 2021-08-03 Orders Doctor DYKES [id number] Univers 00:00:00 00:00:00 Only Unassigned, KELSEY [id number] ity of [place] [facility] [id number] Jono as [phone] [facility] 009 [place] Results This patient has no known results.
--- NOTE | 2022-06-05 13:09 | RAD REPORT ---
EXAM DESCRIPTION: RAD - Chest Single View - 06/05/2022 1:01 pm CLINICAL HISTORY: COUGH COMPARISON: Chest Single View dated 11/07/2021; Abdomen 1 View (KUB) dated 10/11/2021; Chest Single View dated 10/10/2021; Chest Single View dated 07/21/2021 FINDINGS: Lines: None. Lungs: No evidence of edema or pneumonia. Pleural: No significant pleural effusions or pneumothorax. Cardiac: The heart size is within normal limits. Mediastinum: Within normal limits. Bones: No acute fractures. Left shoulder arthroplasty. Other: None IMPRESSION: No acute cardiopulmonary disease.
[2022-06-05 13:29] LABS: Absolute Lymphocytes (CBC) 1.5 K/uL (0.7-4.9); Hematocrit 31.2 % (36.0-45.0); Lymphocytes % 12.9 % (15.3-44.8); MCV 91.2 fL (80-100); MPV 7.9 fL (7.6-11.3); RBC Red Blood Cell Count 3.42 M/uL (3.86-4.86)
[2022-06-05 13:36] LABS: Protime INR 1.17
[2022-06-05 13:48] LABS: Albumin 2.8 g/dL (3.4-5.0); Bilirubin Total 0.8 mg/dL (0.2-1.0); Potassium 3.5 mmol/L (3.5-5.1); Protein, Total 7.7 g/dL (6.4-8.2)
[2022-06-05 14:39] LABS: Urine Blood Negative (Negative); Urine Glucose Negative (Negative); Urine Protein Negative (Negative)
[2022-06-05] MEDS ORDERED: KETOROLAC 30 MG/ML INJ ONE (14:40)
[2022-06-05 15:07] LABS: Specific Gravity 1.023 (1.005-1.030); Urine Bilirubin NEGATIVE (Negative); Urine Blood Negative (Negative); Urine Clarity Clear (Clear); Urine Color Yellow (Yellow); Urine Glucose NEGATIVE (Negative); Urine Mucus Slight /HPF (None Seen); Urine Protein TRACE (Negative); Urine RBC <5 /HPF (None Seen); Urine Urobilinogen Normal (Normal); Urine pH 5.5 (5.0-7.0)
[2022-06-05] MEDS ORDERED: NA CHLORIDE 0.9% 500 ML ONE (15:19)
--- NOTE | 2022-06-05 15:58 | ER ---
Nurse's Notes [facility] Name: Cathleen Coffey Age: 77 yrs Sex: Female : 1945 Arrival Date: 06/05/2022 Time: 11:51 Bed 13 Private MD: Diagnosis: Hypotension, unspecified;Dementia in other diseases classified elsewhere without behavioral disturbance;Anemia, unspecified Presentation: 06/05 12:29 Chief complaint: Parent and/or Guardian states: "We think she has had a UTI. She has ss been in a lot of pain." Unknown fever. Hospice revoked this AM. Coronavirus screen: Client denies travel out of the [place] in the last 14 days. Ebola Screen: Patient denies exposure to infectious person. Patient denies travel to an Ebola-affected area in the 21 days before illness onset. Initial Sepsis Screen: Does the patient meet any 2 criteria? RR > 20 per min. HR > 90 bpm. Does the patient have a suspected source of infection? Yes: Dysuria/Frequency/Urgency/UTI. Risk Assessment: Do you want to hurt yourself or someone else? Patient reports no desire to harm self or others. Onset of symptoms is unknown. 12:29 Method Of Arrival: Wheelchair ss 12:29 Acuity: MAINE 2 ss Historical: - PMHx: 12:32 Alzheimer's disease; Hypertensive disorder; ss - Immunization history:: Adult Immunizations up to date, Client reports receiving the 2nd dose of the Covid vaccine. - Social history:: Smoking status: Patient denies any tobacco usage or history of. Screenin:47 Abuse screen: Denies threats or abuse. Denies injuries from another. Nutritional ld1 screening: No deficits noted. Tuberculosis screening: No symptoms or risk factors identified. Fall Risk None identified. Assessment: 14:47 General: Appears in no apparent distress. comfortable, Behavior is calm, cooperative, ld1 appropriate for age. Pain: Complains of pain in back Pain does not radiate. Pain currently is 9 out of 10 on a pain scale. Quality of pain is described as throbbing, Pain began gradually, Is continuous. Neuro: Level of Consciousness is awake, confused, Oriented to none. Cardiovascular: Capillary refill < 3 seconds Patient's skin is warm and dry. Rhythm is sinus rhythm. Respiratory: Airway is patent Respiratory effort is even, unlabored. GI: Abdomen is flat, non-distended. : No signs and/or symptoms were reported regarding the genitourinary system. EENT: No signs and/or symptoms were reported regarding the EENT system. Derm: No signs and/or symptoms reported regarding the dermatologic system. Musculoskeletal: No signs and/or symptoms reported regarding the musculoskeletal system. 15:21 Reassessment: Notified ERP of VS. ERP at bedside assessing pt. 1 16:30 Reassessment: Reports pt being discharged to [facility]. Waiting on transportation to [facility] arrive. 18:44 Reassessment: ERP spoke with Anju at [facility] hospice - reports that because pt revoked [facility] hospice services 06/05/22 - pt is not eligible to be admitted to another hospice service today on 06/05/22. Hospice company stated "I will have a nurse at [facility] at 2300 to assess pt and admit to hospice service at midnight.". 19:34 General: Appears uncomfortable, slender, Behavior is calm, cooperative, appropriate for aa9 age. General: daughter at bedside requested additional pain medication, Fentanyl 25 mcg IVP provided, pt repositioned in bed. . Pain: Complains of pain in back. Neuro: Level of Consciousness is awake, confused, Oriented to none. Respiratory: Airway is patent Respiratory effort is even, unlabored. GI: No signs and/or symptoms were reported involving the gastrointestinal system. : No signs and/or symptoms were reported regarding the genitourinary system. 20:32 General: Family members state " A hospice nurse is suppose to show up here at 11 and tw5 evaluate here and she is suppose to get a room upstairs.". 06/06 00:52 Reassessment: Kiki Amador, Kamala with hospice at bedside. aa9 Vital Signs: 06/05 12:29 BP 104 / 61; Pulse 120; Resp 22; Temp 99.4(A); Pulse Ox 98% on R/A; ss 13:28 BP 98 / 70; Pulse 98; Resp 15; Pulse Ox 100% on R/A; ld1 14:44 BP 112 / 70; Pulse 82; Resp 18; Pulse Ox 96% on 3 lpm NC; ld1 14:47 BP 112 / 70; Pulse 83; Resp 13; Pulse Ox 100% on 2 lpm NC; ld1 15:20 BP 82 / 55; Pulse 85; Resp 11; Pulse Ox 100% on 2 lpm NC; ld1 16:30 BP 99 / 59; Pulse 76; Resp 15; Pulse Ox 100% on 2 lpm NC; ld1 18:45 BP 94 / 63; Pulse 71; Resp 19; Pulse Ox 100% on 2 lpm NC; ld1 19:06 BP 114 / 60; Pulse 84; Resp 18 S; Pulse Ox 100% on 2 lpm NC; aa9 ED Course: 11:51 Patient arrived in ED. rg4 11:59 Kingston Fish DO is Attending Physician. ms3 12:29 Gissel Vogel, RN is Primary Nurse. ld1 12:32 Triage completed. ss 12:32 Arm band placed on right wrist. ss 13:03 Chest Single View XRAY In Process Unspecified. EDMS 14:43 Urinalysis Sent. ld1 14:47 Patient has correct armband on for positive identification. Placed in gown. Bed in low ld1 position. Call light in reach. Side rails up X2. quality assurance monitor body on. Pulse ox on. NIBP on. Door closed. Noise minimized. Warm blanket given. 14:47 No provider procedures requiring assistance completed. Inserted saline lock: 20 gauge ld1 in right forearm, using aseptic technique. Blood collected. 15:20 Notified ED physician of vital signs. ld1 20:35 patient being evaluated by hospice in the ER. Suppose to obtain an room upstairs. IV tw5 remained intact at this time. 20:46 Attending Physician role handed off by Kingston Fish DO bb 20:46 Primary Nurse role handed off by Gissel Vogel, KAMALA bb Administered Medications: 14:43 Drug: Ketorolac 10 mg Route: IVP; Site: right antecubital; ld1 15:21 Drug: NS 0.9% 500 ml Route: IV; Rate: bolus; Site: right antecubital; ld1 18:39 Drug: fentaNYL Patch (50 mcg/hr) 1 patches Route: Transdermal; Site: affected area; ld1 19:34 Drug: fentaNYL (PF) 25 mcg Route: IVP; Site: right forearm; aa9 Medication: 14:47 VIS not applicable for this client. ld1 Outcome: 15:57 Discharge ordered by . ms3 20:35 Discharged to hospice tw 20:35 Condition: stable 20:35 Discharge instructions given to patient, family, Instructed on discharge instructions, follow up and referral plans. Demonstrated understanding of instructions, follow-up care. 20:36 Patient left the ED. 06/06 02:06 Patient left the ED. bb Signatures: Dispatcher [employer] EDMarizol Nichole RN RN bb Keiko Galindo RN RN Wendie Muñoz 4 Kingston Fish DO DO ms3 Gissel Vogel RN RN ld1 Cheyenne Dejesus tw5 Dolores Gray, RN RN aa9
--- NOTE | 2022-06-05 15:58 | EDPHYS ---
Physician Documentation [facility] Name: Cathleen Coffey Age: 77 yrs Sex: Female : 1945 Arrival Date: 06/05/2022 Time: 11:51 Bed 13 Private MD: ED Physician HPI: 06/05 12:19 This 77 yrs old Female presents to ER via Unassigned with complaints of Urinary Problem.ms3 12:19 77-year-old female with past medical history of advanced Alzheimer's presents with her ms3 daughter for body pain. Patient's daughter states the last time patient had similar symptoms she had a urinary tract infection. Patient's daughter states hospice was revoked today for her to take her to the emergency department. Patient's daughter denies any alleviating or inciting factors. Patient's fentanyl patch was recently increased from 12 to 25 mcg. Historical: - PMHx: 12:32 Alzheimer's disease; Hypertensive disorder; ss - Immunization history:: Adult Immunizations up to date, Client reports receiving the 2nd dose of the Covid vaccine. - Social history:: Smoking status: Patient denies any tobacco usage or history of. ROS: 12:19 Unable to obtain ROS due to baseline dementia. ms3 Exam: 12:19 Head/Face: Normocephalic, atraumatic. Neck: Trachea midline, no cervical ms3 lymphadenopathy. Supple, full range of motion without nuchal rigidity, or vertebral point tenderness. No Meningismus. Chest/axilla: Normal chest wall appearance and motion. Nontender with no deformity. 12:19 Respiratory: Lungs have equal breath sounds bilaterally, clear to auscultation and percussion. No rales, rhonchi or wheezes noted. No increased work of breathing, no retractions or nasal flaring. Abdomen/GI: Soft, non-tender, with normal bowel sounds. No distension or tympany. No guarding or rebound. No evidence of tenderness throughout. Skin: Warm, dry with normal turgor. Normal color with no rashes, no lesions, and no evidence of cellulitis. 12:19 Constitutional: The patient appears alert, awake, non-diaphoretic, non-toxic, frail. 12:19 Cardiovascular: Rate: tachycardic, Rhythm: irregularly irregular, Pulses: no pulse deficits are appreciated. 12:19 Neuro: Orientation: Not oriented to person, place, time, situation, Mentation: unable to follow commands, Motor: No gross deficits, Sensation: no obvious gross deficits, Gait: not tested. 13:02 ECG was reviewed by the Attending Physician. ms3 Vital Signs: 12:29 BP 104 / 61; Pulse 120; Resp 22; Temp 99.4(A); Pulse Ox 98% on R/A; ss 13:28 BP 98 / 70; Pulse 98; Resp 15; Pulse Ox 100% on R/A; ld1 14:44 BP 112 / 70; Pulse 82; Resp 18; Pulse Ox 96% on 3 lpm NC; ld1 14:47 BP 112 / 70; Pulse 83; Resp 13; Pulse Ox 100% on 2 lpm NC; ld1 15:20 BP 82 / 55; Pulse 85; Resp 11; Pulse Ox 100% on 2 lpm NC; ld1 16:30 BP 99 / 59; Pulse 76; Resp 15; Pulse Ox 100% on 2 lpm NC; ld1 18:45 BP 94 / 63; Pulse 71; Resp 19; Pulse Ox 100% on 2 lpm NC; ld1 19:06 BP 114 / 60; Pulse 84; Resp 18 S; Pulse Ox 100% on 2 lpm NC; aa9 MDM: 12:17 Patient medically screened. ms3 12:21 Differential Diagnosis altered mental status, sepsis, UTI vs PNA. ms3 15:33 ED course: Discussed labs with patient's daughter. Patient's daughter does not wish for ms3 vasopressors at this time. We will give 500 mL normal saline bolus. Patient's daughter wishes for patient to be placed in inpatient hospice. Case management notified and will come speak with patient's daughter.. 15:58 ED course: Patient will be discharged from the ED and admitted to [facility] inpatient [facility]3 hospice.. 16:25 Data reviewed: vital signs, nurses notes, lab test result(s), radiologic studies, and ms3 as a result, I will discharge patient. Counseling: I had a detailed discussion with the patient and/or guardian regarding: the historical points, exam findings, and any diagnostic results supporting the discharge/admit diagnosis, lab results, radiology results, the need for outpatient follow up. 06/05 12:17 Order name: Blood Culture Adult (2) ms3 06/05 12:17 Order name: CBC with Diff; Complete Time: 13:55 ms3 06/05 12:17 Order name: CMP; Complete Time: 13:55 ms3 06/05 12:17 Order name: Lactate w/ 2H reflex if indic.; Complete Time: 13:55 ms3 06/05 12:17 Order name: Protime (+inr); Complete Time: 13:55 ms3 06/05 12:17 Order name: Ptt, Activated; Complete Time: 13:55 ms3 06/05 12:18 Order name: Chest Single View XRAY; Complete Time: 13:55 ms3 06/05 13:31 Order name: Glucose, Ancillary Testing; Complete Time: 13:55 EDMS 06/05 13:56 Order name: Urinalysis; Complete Time: 15:32 ms3 06/05 14:39 Order name: Urine Dipstick-Ancillary; Complete Time: 15:32 EDMS 06/05 12:17 Order name: EKG; Complete Time: 12:17 ms3 06/05 12:17 Order name: Accucheck; Complete Time: 13:28 ms3 06/05 12:17 Order name: Cardiac monitoring; Complete Time: 12:43 ms3 06/05 12:17 Order name: EKG - Nurse/Tech; Complete Time: 13:28 ms3 06/05 12:17 Order name: IV Saline Lock - Large Bore; Complete Time: 13:28 ms3 06/05 12:17 Order name: Labs collected and sent; Complete Time: 13:28 ms3 06/05 12:17 Order name: O2 Per Protocol; Complete Time: 12:43 ms3 06/05 12:17 Order name: O2 Sat Monitoring; Complete Time: 12:43 ms3 06/05 12:17 Order name: Vital Signs; Complete Time: 13:28 ms3 06/05 13:56 Order name: Urine Dipstick-Ancillary (obtain specimen); Complete Time: 14:43 ms3 EC:02 Rate is 96 beats/min. Rhythm is regular. QRS [place] is Normal. [place] interval is normal. QRS ms3 interval is prolonged. Clinical impression: NSR w/ Non-specific ST/T Changes. Interpreted by me. Reviewed by me. Administered Medications: 14:43 Drug: Ketorolac 10 mg Route: IVP; Site: right antecubital; ld1 15:21 Drug: NS 0.9% 500 ml Route: IV; Rate: bolus; Site: right antecubital; ld1 18:39 Drug: fentaNYL Patch (50 mcg/hr) 1 patches Route: Transdermal; Site: affected area; ld1 19:34 Drug: fentaNYL (PF) 25 mcg Route: IVP; Site: right forearm; aa9 Disposition: 16:33 Chart complete. ms3 Disposition Summary: 06/05/22 15:57 Discharge Ordered Condition: Stable ms3 Location: Other(06/05/22 15:58) ms3 Diagnosis - Hypotension, unspecified ms3 - Dementia in other diseases classified elsewhere without behavioral disturbance ms3 - Anemia, unspecified ms3 Followup: ms3 - With: Private Physician - When: Today - Reason: Discharge Instructions: - Discharge Summary Sheet aa9 Forms: - Medication Reconciliation Form ms3 - Thank You Letter ms3 - Antibiotic Education ms3 - Prescription Opioid Use ms3 - SBAR form aa9 Signatures: Dispatcher [employer] EDKeiko Turpin RN RN Kingston Fish DO DO ms3 Gissel Vogel RN RN ld1 Dolores Gray RN RN aa9 Corrections: (The following items were deleted from the chart) 15:58 15:57 Home ms3 ms3
[2022-06-05] MEDS ORDERED: FENTANYL 50 MCG/PATCH TD ONE (16:45)
[2022-06-05] MEDS ORDERED: FENTANYL CITR 100 MCG/2 ML ONE (19:28)
[2022-06-05 21:20] VITALS: TEMP 99.4
[2022-06-05 21:24] VITALS: O2SAT 100
[2022-06-05 21:29] VITALS: BP 114/60
--- NOTE | 2022-06-07 16:31 | EKG ---
Test Date: 2022-06-05 Test Time: 12:59:47 Disposal Plant Operator: LAURA MEASUREMENT RESULTS: Intervals: Rate: 109 OK: 148 QRSD: 80 QT: 320 QTc: 430 [place]: P: 54 [place]: 148 QRS: 21 T: 49 INTERPRETIVE STATEMENTS: Sinus tachycardia Possible Lateral infarct, age undetermined Abnormal ECG Compared to ECG 07/21/2021 21:03:55 Myocardial infarct finding now present Sinus rhythm no longer present ST (T wave) deviation no longer present Electronically Signed On 06-07-22 16:23:51 DEVELOPMENTAL BEHAVIORAL PHYSICIAN by Ggae Gordillo
== END 2022-06-06 02:06 | disposition home or self-care (01) ==
LOC: ER 11:47
DX: I95.9 Hypotension, unspecified (principal); D64.9 Anemia, unspecified; G30.9 Alzheimer's disease, unspecified; F02.80 Dementia in other diseases classified elsewhere, unspecified severity, without behavioral disturbance, psychotic disturbance, mood disturbance, and anxiety; I10 Essential (primary) hypertension
CPT/HCPCS: 93005; 87040 ×2; 85025; 81001; 36415; 87205; 85610; 82947; 83605; 85730; 81003; 80053; 71045; 99284; J3010; J7040

== ENCOUNTER 2022-06-06 01:00 | Inpatient (IN) | payer OTHER ==
--- OUTSIDE RECORDS SUMMARY | 2022-06-06 01:38 | XMS REPORT | Continuity of Care Document ---
:1945 Author Organization [facility] t Address [address] [place] [address] Dr. Peña. [address] [place] [address] Care Team Providers Name Role Phone Ferdinand Ross Primary Care Physician Therapy, Adc Covid Infusion Attending Clinician Unavailable Ilir Anderson MD Attending Clinician ILIR ANDERSON Attending Clinician Unavailable Arlette Andrew RN Attending Clinician Unavailable Only, Ang Db Test Attending Clinician Unavailable Archie Quintero MD Attending Clinician ARCHIE QUINTERO Attending Clinician Unavailable Doctor Unassigned, [place] Attending Clinician Unavailable Payers Payer Name Policy Type Policy Number Effective Date Expiration Date S ource Problems Condition Condition Condition Status Onset Resolution Last Treating Co mments Source Name Details Category Date Date Treatment Clinician Date No known No known Disease Unive rs active active ity of problems problems [facility] Allergies, Adverse Reactions, Alerts Allergy Allergy Status Severity Reaction(s) Onset Inactive Treating Comm ents Source Name Type Date Date Clinician NO KNOWN Drug Active Univers ALLERGIE Class ity of S [facility] Social History Social Habit Start Date Stop Date Quantity Comments Source Alcohol intake 2021-08-03 2021-08-03 Current [facility] 00:00:00 00:00:00 non-drinker of [facility] alcohol [place] (finding) Sex [birth year] Universit y of 00:00:00 00:00:00 [facility] Smoking Status Start Date Stop Date Source Never smoker [facility] Medications Ordered Filled Start Stop Current Ordering Indication Dosage Frequency Signature Comments Components Source Medication Medication Date Date Medication? Clinician (SIG) Name Name betsey 2021- No [id number] 500mg 500 mg, IV Univers (XEVUDY) 08-06 Infusion, ity o f 500 mg in 16:30: 15:51 ONCE, [place] NaCl 0.9% 00 :00 Administer Medi kalyn (NS) 50 mL over 30 Branch MINI-BAG Minutes, On 08/06/21 at 1030, For [address] able 24 hours refrigerat ed or 6 hours at room temperatur e including transporta tion and infusion time.
GALANTAMINE Yes [id number] TAKE 1 Univers 8 mg tablet 6-24 TABLET BY ity of 00:00: MOUTH [place] 00 TWICE A Medical DAY Branch GALANTAMINE Yes [id number] TAKE 1 Univers 8 mg tablet 6-24 TABLET BY ity of 00:00: MOUTH [place] 00 TWICE A Medical DAY Branch GALANTAMINE Yes [id number] TAKE 1 Univers 8 mg tablet 6-24 [...] 15:04: by mouth [place] (CENTRUM 26 daily. [facility] WOMEN ORAL) vitamin C Yes 1000mg Take 1,000 Univers with deon 2-04 mg by ity of hips 15:04: mouth [place] (VITAMIN C) 26 daily. Medica l 1,000 mg Branch tablet vitamin 2019- Yes 500ug Take 500 Unive rs B-12 (B-12 2-04 mcg by ity of DOTS) 500 15:04: mouth [place] mcg tablet 26 daily. [facility] B Complex Yes Take 1 Univer s Vitamins 2-04 TAB-CAP/M2 ity o f (B-50 15:04: by mouth [place] COMPLEX) 26 daily. [facility] multivit-mi Yes Take 1 Univ ers n/iron/foli 2-04 TAB-CAP/M2 it y of c/lutein 15:04: by mouth [place] (CENTRUM 26 daily. [facility] WOMEN ORAL) vitamin C Yes 1000mg Take 1,000 Univers with deon 2-04 mg by ity of hips 15:04: mouth [place] (VITAMIN C) 26 daily. Medica l 1,000 mg Branch tablet C,E,zinc,co Yes Take 1 Univ ers pper 2-04 TAB-CAP/M2 ity of 11/iydgc0u/ 15:04: [place] lut 25 daily. Medical ([facility] ADULT 50 PLUS ORAL) C,E,zinc,co 2018- Yes Take 1 Univ ers pper 2-04 TAB-CAP/M2 ity of 11/rmyow2q/ 15:04: [place] 25 daily. Medical ([facility] ADULT 50 PLUS ORAL) C,E,zinc,co Yes Take 1 Univ ers pper 2-04 TAB-CAP/M2 ity of 11/hylka4c/ 15:04: [place] 25 daily. Medical ([facility] ADULT 50 PLUS ORAL) traZODone 2017-07 Yes TAKE 1 Univer s 150 mg 2-13 TABLET BY ity of tablet 00:00: MOUTH [place] 00 EVERYDAY Medical AT BEDTIME [place] traZODone 2017-07 Yes TAKE 1 Univer s [...] [facility] pressure [facility] Diastolic blood 2021-08-06 16:46:00 79 mm[Hg] [place] [facility] 2021-08-06 16:46:00 56 /min [facility] Body temperature 2021-08-06 16:46:00 36.78 [facility] Respiratory rate 2021-08-06 16:46:00 15 /min [facility] O[facility] saturation in 2021-08-06 16:46:00 95 /min [facility] Arterial blood by [facility] Pulse oximetry [place] Body height 2021-08-06 15:05:00 170.2 cm [facility] Body weight 2021-08-06 15:05:00 67.132 kg [facility] BMI 2021-08-06 15:05:00 23.18 kg/m2 [facility] Body height 2021-08-03 22:27:00 170.2 cm [facility] Procedures This patient has no known procedures. Encounters Start End Encounter Admission Attending Care Care Encounter Source Date/Time Date/Time Type Type Clinicians Facility Department ID 2021-08-06 2021-08-06 Nurse Therapy, Adc Covid Infusion [facility] [id number] Univers 09:00:00 10:00:00 Visit AndersonJimenez leemirta Fagan SHY [id number] ity of [facility] [id number] [id number] [facility] 053 Branch 2021-08-06 2021-08-06 Outpatient R NGOZI [facility] [id number] Univers 09:00:00 09:00:00 ILIR price [facility] 2021-08-04 2021-08-04 Telephone Arlette Andrew [id number] Univers 00:00:00 00:00:00 KELSEY [id number] it y of HOSPITAL [id number] [place] as [phone] [facility] 019 Branch 2021-08-03 2021-08-03 Urgent Only, Ang Db Test [facility] [id number] Univers 16:20:00 16:29:12 Jenny Quintero [facility] [id number] ity of [place] [id number] [place] as MIKAYLA?BLEA [phone] [address] MEDICAL OFFICE BUILDING 2021-08-03 2021-08-03 Outpatient R LEON [facility] [id number] Univers 16:20:00 16:29:12 ARCHIE price [facility] 2021-08-03 2021-08-03 Orders Doctor DYKES [id number] Univers 00:00:00 00:00:00 Only Unassigned, KELSEY [id number] ity of [place] [facility] [id number] Jono as [phone] [facility] 009 [place] Results This patient has no known results.
[2022-06-06 02:43] VITALS: BMI 20.2
[2022-06-06] MEDS ORDERED: BISACODYL 10 MG RECTAL SUPP PR PRN (10:10)
[2022-06-06] MEDS ORDERED: FENTANYL 50 MCG/PATCH TD SCH (10:15)
[2022-06-06] MEDS: MORPHINE 2 MG/ML SYR IV PRN (20:54)
[2022-06-06] MEDS: LORazepam 2 MG/ML VIAL IV PRN (23:56)
[2022-06-07] MEDS: MORPHINE 2 MG/ML SYR IV PRN ×6 (09:44→20:32)
[2022-06-07] MEDS: LORazepam 2 MG/ML VIAL IV PRN ×2 (11:08→13:33)
--- NOTE | 2022-06-07 16:31 | EKG ---
Test Date: 2022-06-05 Test Time: 13:00:41 Senior Project Manager Engineering: LAURA MEASUREMENT RESULTS: Intervals: Rate: 107 [place]: 144 QRSD: 82 QT: 332 QTc: 443 [place]: P: 43 [place]: 144 QRS: 14 T: 49 INTERPRETIVE STATEMENTS: Sinus tachycardia Possible Lateral infarct, age undetermined Abnormal ECG Compared to ECG 06/05/2022 12:59:47 No significant changes Electronically Signed On 06-07-22 16:23:50 CONSULTING BUSINESS DEVELOPER by Gage Gordillo
[2022-06-08] MEDS: MORPHINE 2 MG/ML SYR IV PRN ×6 (05:59→22:37)
[2022-06-08] MEDS: FENTANYL 50 MCG/PATCH TD SCH (16:05)
[2022-06-08] MEDS: LORazepam 2 MG/ML VIAL IV PRN (21:18)
[2022-06-09] MEDS: LORazepam 2 MG/ML VIAL IV PRN ×5 (01:04→16:21)
[2022-06-09] MEDS: MORPHINE 2 MG/ML SYR IV PRN ×4 (03:47→14:47)
[2022-06-09] MEDS ORDERED: SCOPOLAMINE HYDROBROMIDE PATCH TD PRN (09:00)
[2022-06-10] MEDS: MORPHINE 2 MG/ML SYR IV PRN ×6 (06:24→22:20)
[2022-06-10] MEDS: LORazepam 2 MG/ML VIAL IV PRN ×6 (06:25→22:20)
[2022-06-11] MEDS: MORPHINE 2 MG/ML SYR IV PRN ×12 (00:34→22:21)
[2022-06-11] MEDS: LORazepam 2 MG/ML VIAL IV PRN ×11 (00:34→22:20)
[2022-06-11] MEDS: FENTANYL 50 MCG/PATCH TD SCH (16:47)
[2022-06-11 20:31] VITALS: TEMP 99.6
[2022-06-11 22:56] VITALS: O2SAT 87
[2022-06-12] MEDS: LORazepam 2 MG/ML VIAL IV PRN ×6 (00:23→10:31)
[2022-06-12] MEDS: MORPHINE 2 MG/ML SYR IV PRN ×6 (00:23→10:31)
[2022-06-12 09:22] VITALS: BP 59/44
== END 2022-06-12 16:28 | disposition expired | DRG 951 ==
LOC: 4TH 01:00
PROVIDERS: ADMIT Internal Medicine Geriatric Medicine; ATTEND Internal Medicine Geriatric Medicine
DX: Z51.5 Encounter for palliative care (principal)
CPT/HCPCS: 36415; 71045; 80053; 81001; 81003; 82947; 83605; 85025; 85610; 85730; 87040; 87205; 93005; 99284; J2270; J3010; J7040